=== PATIENT | female | born 1935 | race African-American/Black ===

== ENCOUNTER 2018-11-19 15:57 | Inpatient (IN) ==
[2018-11-19] MEDS ORDERED: Sod Chloride 0.9% Inj 1,000 ML IV.SIG ONE (16:48)
[2018-11-19] MEDS ORDERED: Acetaminophen 325 MG Tablet PO ONE (16:48)
[2018-11-19] MEDS ORDERED: MethylPREDNISolone Sod Succinate Inj 40 MG/ML Vial IV.PUSH ONE (16:51)
--- NOTE | 2018-11-19 16:59 | ED ---
HPI General Chief Complaint: Shortness of Breath/Dyspnea Stated Complaint: sob/dr sent Time Seen by Provider: 11/19/18 16:41 Source: patient Mode of arrival: ambulatory Limitations: no limitations History of Present Illness 83-year-old female with PMH of COPD, DM, HTN, oxygen dependent at home on 2 L presents to the ED for evaluation of one day history of cold and flu symptoms with worsening shortness of breath. Patient states that she saw her primary care provider yesterday and was feeling well. She states she woke up this morning feeling feverish, more short of breath with a cough productive of yellow -green phlegm. She denies chest pain, palpitations, diaphoresis, nausea, vomiting, dysuria, lower extremity edema. She is followed by Dr. Harsh Urbina , pulmonology. She states that she called his office and was told to come to the emergency room. She endorses receiving the pneumonia vaccine. She did receive this years flu vaccine. She denies sick contacts. She is followed by Dr. Mccloud, cardiology. Related Data Home Medications Medication Instructions Recorded Confirmed alprazolam [Xanax] 0.5 mg PO TID 11/19/18 11/19/18 aspirin 81 mg PO DAILY 11/19/18 11/19/18 carvedilol [Coreg] 3.125 mg PO TID 11/19/18 11/19/18 citalopram 20 mg PO DAILY 11/19/18 11/19/18 furosemide [Lasix] 40 mg PO DAILY 11/19/18 11/19/18 omeprazole 40 mg PO BID 11/19/18 11/19/18 primidone 25 mg PO Q12H 11/19/18 11/19/18 warfarin [Coumadin] 5 mg PO DAILY 11/19/18 11/19/18 Allergies Allergy/AdvReac Type Severity Reaction Status Date / Time No Known Allergies Allergy Verified 11/19/18 16:38 Review of Systems ROS: all other systems reviewed are negative [facility] Medical History Medical History COPD (chronic obstructive pulmonary disease) (Acute) Diabetes (Acute) Essential tremor (Acute) History of cholecystitis (Acute) History of hysterectomy (Acute) Hypertension (Acute) Personal history of DVT (deep vein thrombosis) (Acute) Surgical History Surgical History History of appendectomy (Acute) History of knee surgery (Acute) History of knee surgery (Acute) History of tonsillectomy (Acute) Social History Social History Substance History: No History of Abuse Second Hand Smoke Exposure: No Smoking Status: Never smoker How Often Do You Have a Drink Containing Alcohol: Never Immunization History Tetanus Immunization: Unsure Exam Narrative Exam Narrative: GENERAL: Pleasant, obese -Syrian female on 2 L by nasal cannula, no acute distress. SKIN: Focused skin assessment warm/dry. HEAD: Atraumatic. Normocephalic. EYES: Pupils equal and round. No scleral icterus. No injection or drainage. ENT: No nasal bleeding or discharge. Mucous membranes pink and moist. NECK: Trachea midline. No JVD. CARDIOVASCULAR: Regular rate and rhythm. No murmur appreciated. RESPIRATORY: No accessory muscle use. Coarse breath sounds in all lung melendez. Breath sounds equal bilaterally. Wet sounding cough. Crackles at bedside. GASTROINTESTINAL: Abdomen soft, non-tender, nondistended. Hepatic and splenic margins not palpable. MUSCULOSKELETAL: No obvious deformities. No clubbing. No cyanosis. No edema. NEUROLOGICAL: Awake and alert. No obvious cranial nerve deficits. Motor grossly within normal limits. Normal speech. PSYCHIATRIC: Appropriate mood and affect; insight and judgment normal. Course Initial Documented Vital Signs Temperature 102.2 F H 11/19/18 16:01 Pulse Rate 94 H 11/19/18 16:01 Respiratory Rate 32 H 11/19/18 16:01 Blood Pressure 166/77 H 11/19/18 16:01 Pulse Oximetry 83 L 11/19/18 16:01 Last Documented Vital Signs Temperature 98.9 F 11/19/18 16:38 Pulse Rate 92 H 11/19/18 17:21 Respiratory Rate 24 11/19/18 17:21 Blood Pressure 139/63 11/19/18 16:38 Pulse Oximetry 96 11/19/18 20:34 Medical Decision Making DEMARCO Attestation DEMARCO supervised visit: Yes Attestation: I, Dr. Javier, have reviewed the advance practice practitioner's documentation and am in agreement, met with the patient face to face, made the diagnosis, and the medical decision making was done by me. *My assessment and Findings: Patient is an 83-year-old female with history of COPD who presents with complaint of worsening cough and dyspnea. She normally wears 2 L nasal cannula at 3 L on exertion. On arrival here she is hypoxic on her normal oxygen and had to be increased to 4 L while at rest just to maintain a saturation of 90-92. EKG shows T wave inversions and troponin is slightly elevated, though the pilot can router does not want her on heparin at this time. CXR shows possible scarring/density and she has been given antibiotics. She has been admitted. [facility] Narrative Medical decision making narrative: 83-year-old female with PMH of DM, COPD, HTN , oxygen dependent on 2 L at home on Coumadin presents to the ED for evaluation of less than 12-hour history of cough, worsening shortness of breath. Patient denies associated chest pain. Patient is febrile, heart rate 94, O2 saturations in the 80s on 2 L on arrival. O2 sats improved to 95% on 4 L by nasal cannula. On physical exam she has coarse breath sounds in all lung melendez. Patient was administered a dose of Solu-Medrol and duo. Sepsis workup was initiated. Patient was administered Tylenol by mouth. EKG with right axis deviation and T wave abnormalities in leads II, III, and V2 through V4, change from last EKG in 2016. Troponin of 0.12. WBC is 15.8 with a left shift. Hemoglobin 10.0. Lactic acid 1.3. BUN 11, creatinine 1.15. CXR: Right upper lobe density, likely scarring. Patient was administered IV azithromycin and Rocephin. I spoke with Dr. Dexter, on-call for Dr. Mccloud. He does not recommend anticoagulation at this time. His service will consult on the patient. I discussed the findings with the patient and her family member at bedside. They are agreeable to admission. I spoke with Dr. Beyer who agrees to accept the patient to the medicine service. Please see medicine notes for disposition. Medical Screen Exam Complete: Yes Emergency Medical Condition: Yes Differential Diagnosis Differential Diagnosis: Pneumonia versus influenza versus COPD exacerbation versus ACS versus other Lab Data Result diagrams: 11/19/18 17:10 11/19/18 17:10 Lab Results 11/19/18 11/19/18 11/19/18 Range/Units 17:10 17:10 17:10 WBC 15.8 H (4.0-11.0) th/mm3 RBC 5.12 (4.00-5.30) mil/mm3 Hgb 10.0 L (11.6-15.3) gm/dL Hct 33.6 L (35.0-46.0) % MCV 65.6 L (80.0-100.0) fL MCH 19.6 L (27.0-34.0) pg MCHC 29.8 L (32.0-36.0) % RDW 20.9 H (11.6-17.2) % Plt Count 246 (150-450) th/mm3 MPV 8.6 (7.0-11.0) fL Neut % (Auto) 79.0 H (16.0-70.0) % Lymph % (Auto) 14.4 (9.0-44.0) % Stone % (Auto) 6.0 (0.0-8.0) % Eos % (Auto) 0.2 (0.0-4.0) % Baso % (Auto) 0.4 (0.0-2.0) % Neut # (Auto) 12.5 H (1.8-7.7) th/mm3 Lymph # (Auto) 2.3 (1.0-4.8) th/mm3 Stone # (Auto) 1.0 H (0.0-0.9) th/mm3 Eos # (Auto) 0.0 (0.0-0.4) th/mm3 Baso # (Auto) 0.1 (0.0-0.2) th/mm3 WBC Differential . Differential Comment Auto diff final Sodium 140 (136-145) meq/L Potassium 4.0 (3.5-5.1) meq/L Chloride 103 (98-107) meq/L Carbon Dioxide 29.7 (21.0-32.0) meq/L Anion Gap 7 (5-15) meq/L BUN 11 (7-18) mg/dL Creatinine 1.15 H (0.50-1.00) mg/dL Estimated GFR 55 L (>89) mL/min Random Glucose 134 H (74-106) mg/dL Lactic Acid 1.3 (0.4-2.0) mmol/L Calcium 8.1 L (8.5-10.1) mg/dL Total Bilirubin 0.5 (0.2-1.0) mg/dL AST 11 L (15-37) U/L ALT 12 (10-53) U/L Alkaline Phosphatase 62 (45-117) U/L Troponin I 0.12 H (0.02-0.05) ng/mL Total Protein 7.7 (6.4-8.2) g/dL Albumin 3.2 L (3.4-5.0) g/dL Imaging Data Radiologist's impression: Chest X-Ray 11/19/18 16:48 CONCLUSION: Right upper lobe density, likely scarring. ECG Data EKG Prior to Arrival: No Attestation: I personally reviewed and interpreted this ECG as follows: Interpretation: Rate 93, sinus rhythm. WA interval 172, QRS 89, QTc 408 ms. Normal axis. Inverted T waves with minimal ST depression in leads II, 3, V2, V3 , V4. This is changed as compared to previous EKG in 2016. Reviewed by Dr. Javier. Discharge Plan Discharge Disposition Patient Disposition: ED Admit(ED Internal Use Only) Discharge Order Discharge Orders: ED Use Only Admit Order (Routine); Ordered 11/19/18 Ordered By: Mary Moreno Physicians Team ED Provider: Fernanda Javier ED Midlevel Provider: Mary Moreno Primary Care Provider: Surya Anderson Attending Provider: Sarika Beyer Other Providers: Armand Peter ; Tara Mccloud Status ED Status: Admitted Patient
--- NOTE | 2018-11-19 17:24 | XR ---
EXAM DATE: 11/19/2018 5:14 PM EST AGE/SEX: 83 years / Female INDICATIONS: Cough and shortness of breath. CLINICAL DATA: This is the patient's initial encounter. Patient reports that signs and symptoms have been present for 1 day and indicates a pain score of 0/10. MEDICAL/SURGICAL HISTORY: . Chronic obstructive pulmonary disease. Emphysema. Right clavicle fr acture. . Cardiac catheter. COMPARISON: POI, XR CHEST PA AND LAT, 09/10/2016. POI, CT CHEST W/O CONTRAST, 05/26/2015. . FINDINGS: A single AP view of the chest demonstrates minimal right upper lobe density likely scarring. Left estefany g clear. Diminished lung volumes. Heart normal in size. The cardiomediastinal contours are unremarkab le. Osseous structures are intact. CONCLUSION: Right upper lobe density, likely scarring. Electronically signed by: Robert Chacon MD Board Certified Radiologist 11/19/2018 5:22 PM EST
[2018-11-19 17:39] LABS: Baso # (Auto) 0.1 th/mm3 (0.0-0.2); Baso % (Auto) 0.4 % (0.0-2.0); Eos % (Auto) 0.2 % (0.0-4.0); Hematocrit 33.6 % (35.0-46.0); Lymph # (Auto) 2.3 th/mm3 (1.0-4.8); Lymph % (Auto) 14.4 % (9.0-44.0); Mean Corpuscular Hemoglobin 19.6 pg (27.0-34.0); Mean Corpuscular Volume 65.6 fL (80.0-100.0); Mean Platelet Volume 8.6 fL (7.0-11.0); Neut # (Auto) 12.5 th/mm3 (1.8-7.7); Platelet Count 246 th/mm3 (150-450); Red Blood Count 5.12 mil/mm3 (4.00-5.30); Red Cell Distribution Width 20.9 % (11.6-17.2); White Blood Count 15.8 th/mm3 (4.0-11.0)
[2018-11-19 17:53] LABS: Mean Corpuscular HGB Conc 29.8 % (32.0-36.0)
[2018-11-19 18:00] LABS: Alanine Aminotransferase 12 U/L (10-53); Albumin 3.2 g/dL (3.4-5.0); Anion Gap 7 meq/L (5-15); Aspartate Aminotransferase 11 U/L (15-37); Blood Urea Nitrogen 11 mg/dL (7-18); Calcium 8.1 mg/dL (8.5-10.1); Carbon Dioxide 29.7 meq/L (21.0-32.0); Chloride 103 meq/L (98-107); Glomerular Filtration Rate 55 mL/min (>89); Glucose,Random 134 mg/dL (74-106); Sodium 140 meq/L (136-145)
[2018-11-19 18:04] LABS: Alkaline Phosphatase 62 U/L (45-117); Total Protein 7.7 g/dL (6.4-8.2); Troponin I 0.12 ng/mL (0.02-0.05)
[2018-11-19] MEDS ORDERED: Azithromycin Inj 500 MG in Sodium Chlor 0.9% Inj 250 ML IV.SIG ONE ×3 (18:07→23:59)
[2018-11-19] MEDS ORDERED: Sodium Chlor 0.9% Inj 500 ML IV.SIG ONE (18:37)
[2018-11-19] MEDS ORDERED: Acetaminophen 325 MG Tablet PO PRN (19:27)
[2018-11-19] MEDS ORDERED: Bisacodyl 10 MG Supp RECTAL PRN (19:27)
[2018-11-19] MEDS ORDERED: Dextrose 50% in Water 50 ML Vial IV.PUSH PRN (19:31)
--- NOTE | 2018-11-19 19:44 | P.HPIM ---
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 Patient reports her cough started last night and is productive of yellow/pink sputum. She was febrile on arrival to the emergency department however denies having any knowledge or symptoms of this. She denies any chest pain or shortness of breath despite being hypoxic to 83%. No abdominal pain. No nausea/vomiting/diarrhea. No focal neurologic deficits. Inpatient Certification Inpatient Certification: I certify that the inpatient services were ordered in accordance with Medicare regulations governing the order. This includes certification that hospital inpatient services are reasonable and necessary and in the case of services not specified as inpatient-only under 42 CFR 419.22(n), that they are appropriately provided as inpatient services in accordance to with the 2-midnight benchmark under 43 CFR 412.3(e) Estimated Total Length of Stay (Days): 3 Plans for Post Hospital Care: Not yet determined Review of Systems Review of Systems: all other systems reviewed are negative [facility] Medical History Medical History COPD (chronic obstructive pulmonary disease) (Acute) Diabetes (Acute) Essential tremor (Acute) History of cholecystitis (Acute) History of hysterectomy (Acute) Hypertension (Acute) Personal history of DVT (deep vein thrombosis) (Acute) Surgical History Surgical History History of appendectomy (Acute) History of knee surgery (Acute) History of knee surgery (Acute) History of tonsillectomy (Acute) Family History Family History Other Coronary artery disease Diabetes mellitus Social History Social History Substance History: No History of Abuse Second Hand Smoke Exposure: No Smoking Status: Never smoker How Often Do You Have a Drink Containing Alcohol: Never Immunization History Tetanus Immunization: Unsure Medications and Allergies Allergies Allergy/AdvReac Type Severity Reaction Status Date / Time No Known Allergies Allergy Verified 11/19/18 16:38 Home Medications Medication Instructions Recorded Confirmed Type alprazolam [Xanax] 0.5 mg PO TID 11/19/18 11/19/18 History aspirin 81 mg PO DAILY 11/19/18 11/19/18 History carvedilol [Coreg] 3.125 mg PO TID 11/19/18 11/19/18 History citalopram 20 mg PO DAILY 11/19/18 11/19/18 History furosemide [Lasix] 40 mg PO DAILY 11/19/18 11/19/18 History omeprazole 40 mg PO BID 11/19/18 11/19/18 History primidone 25 mg PO Q12H 11/19/18 11/19/18 History warfarin [Coumadin] 5 mg PO DAILY 11/19/18 11/19/18 History Active Medications: Active Medications Acetaminophen (Tylenol) 650 mg PO Q4H PRN PRN Reason: Temp > 100.4 Al Hydroxide/Mg Hydroxide (Milk Of Magnesia Liq) 30 ml PO Q12H PRN PRN Reason: Mild Constipation Albuterol (Duoneb Neb (Prn)) 1 ampul NEB Q4HR NEB PRN PRN Reason: SHORTNESS OF BREATH/WHEEZING Bisacodyl (Dulcolax Supp) 10 mg RECTAL DAILY PRN PRN Reason: SEVERE CONSITIPATION Dextrose (D50w Vial) 50 ml IV.PUSH UNSCH PRN PRN Reason: PER HYPOGLYCEMIA PROTOCOL Glucagon (Glucagon Inj) 1 mg OTHER PRN PRN PRN Reason: for Hypoglycemia Protocol Ceftriaxone Sodium 1,000 mg/ (Sodium Chloride) 100 mls @ 200 mls/hr IV.SIG Q24H KRISTIAN Azithromycin 500 mg/ Sodium (Chloride) 250 mls @ 250 mls/hr IV.SIG Q24H KRISTIAN Insulin Aspart (Novolog Insulin Correctional Sugar Inj) 0 unit SQ ACHS AND 3AM KRISTIAN; Protocol Lactulose (Lactulose Liq) 30 ml PO DAILY PRN PRN Reason: SEVERE CONSITIPATION Methylprednisolone Sodium Succinate (Solumedrol Inj) 40 mg IV.PUSH Q12H KRISTIAN Ondansetron HCl (Zofran Inj) 4 mg IV.PUSH Q6H PRN PRN Reason: NAUSEA OR VOMITING Senna/Docusate Sodium (Kori-Colace) 1 tab PO BID KRISTIAN Sennosides (Senokot) 17.2 mg PO Q12H PRN PRN Reason: Moderate Constipation Sodium Chloride (Ns Flush) 2 ml IV.FLUSH BID KRISTIAN Sodium Chloride (Ns Flush) 2 ml IV.FLUSH BID KRISTIAN Sodium Chloride (Ns Flush) 2 ml IV.FLUSH PRN PRN PRN Reason: FLUSH AFTER USING IV ACCESS Sodium Chloride (Ns Flush) 2 ml IV.FLUSH PRN PRN PRN Reason: FLUSH AFTER USING IV ACCESS Physical Exam Vital signs: Vital Signs 11/19/18 16:01 11/19/18 16:38 11/19/18 16:48 Temperature 102.2 F H 98.9 F Pulse Rate 94 H 94 H Respiratory Rate 32 H 24 Blood Pressure 166/77 H 139/63 Pulse Oximetry 83 L 94 L 96 11/19/18 16:53 11/19/18 17:12 11/19/18 17:21 Temperature Pulse Rate 92 H 92 H Respiratory Rate 24 Blood Pressure Pulse Oximetry 95 Intake & Output 11/19/18 11/19/18 11/20/18 06:59 18:59 06:59 Intake Total 1000 / 1000 100 / 100 Balance 1000 / 1000 100 / 100 Weight 108.862 kg Intake: IV 1000 / 1000 100 / 100 NS Inj 1,000 ML @ Wide Open IV. 1000 / 1000 SIG BOLUS ONE Rx#:[id number] Rocephin Inj 1,000 MG In NS Inj 100 / 100 100 ML @ 200 mls/hr IV.SIG ONCE ONE Rx#:[id number] Narrative: Gen.: No acute distress Head: Normocephalic. Atraumatic. EENT: Pupils equal round and reactive to light. Nose without drainage. Airway intact. Throat without injection. Cardiovascular: Regular rate and rhythm. No murmurs, rubs or gallops. Respiratory: Bilateral wheezes and rhonchi Abdomen: Soft, nontender, nondistended. No peritoneal signs. Musculoskeletal: No gross deformities. No edema. Skin: No obvious rashes or erythema. Neuro: Sensory and motor grossly intact. Cranial nerves II through XII grossly intact. Results Labs CBC & Chem 7: 11/19/18 17:10 11/19/18 17:10 Imaging Impressions Chest X-Ray 11/19/18 16:48 CONCLUSION: Right upper lobe density, likely scarring. Caprini VTE Risk Assessment Caprini VTE Risk Assessment: Moderate/High Risk (score >= 2) Caprini Risk Assessment Model: Point Value = 1 Point Value = 2 Point Value = 3 Point Value = 5 Age 41-60 Minor surgery BMI > 25 kg/m2 Swollen legs Varicose veins or History of unexplained or recurrent spontaneous Oral contraceptives or hormone replacement Sepsis (< 1 month) Serious lung disease, including pneumonia (< 1 month) Abnormal pulmonary function Acute myocardial infarction Congestive heart failure (< 1 month) History of inflammatory bowel disease Medical patient at bed rest Age 61-74 Arthroscopic surgery Major open surgery (> 45 min) Laparoscopic surgery (> 45 min) Malignancy Confined to bed (> 72 hours) Immobilizing plaster cast Central venous access Age >= 75 History of VTE Family history of VTE Factor V Leiden Prothrombin [id number] Lupus anticoagulant Anticardiolipin antibodies Elevated serum homocysteine Heparin-induced thrombocytopenia Other congenital or acquired thrombophilia Stroke (< 1 month) Elective arthroplasty Hip, pelvis, or leg fracture Acute spinal cord injury (< 1 month) Prophylaxis Regimen: Total Risk Factor Score Risk Level Prophylaxis Regimen 0-1 Low Early ambulation 2 Moderate Order ONE of the following: *Sequential Compression Device (SCD) *Heparin 5000 units SQ BID 3-4 Higher Order ONE of the following medications: *Heparin 5000 units SQ TID *Enoxaparin/Lovenox 40 mg SQ daily (WT < 150 kg, CrCl > 30 mL/min) *Enoxaparin/Lovenox 30 mg SQ daily (WT < 150 kg, CrCl > 10-29 mL/min) *Enoxaparin/Lovenox 30 mg SQ BID (WT < 150 kg, CrCl > 30 mL/min) AND/OR *Sequential Compression Device (SCD) 5 or more Highest Order ONE of the following medications: *Heparin 5000 units SQ TID (Preferred with Epidurals) *Enoxaparin/Lovenox 40 mg SQ daily (WT < 150 kg, CrCl > 30 mL/min) *Enoxaparin/Lovenox 30 mg SQ daily (WT < 150 kg, CrCl > 10-29 mL/min) *Enoxaparin/Lovenox 30 mg SQ BID (WT < 150 kg, CrCl > 30 mL/min) AND *Sequential Compression Device (SCD) Assessment and Plan Plan Assessment/plan: 1. COPD exacerbation/cough/Sirs Chest x-ray negative for acute process Increased cough productive of purulent sputum Blood cultures pending UA pending Azithromycin/Rocephin Duo nebs IV steroids Supplemental oxygen as needed 2. Elevated troponin/EKG changes Patient's troponin 0.12 EKG significant for T wave inversions in V2, V3, V4 and leads II and III new from previous Patient denies any chest pain ED provider spoke with Dr. Dexter who recommends serial EKGs/troponins without anticoagulation at this time ACS rule out pending 3. History of DVT/PE Patient anticoagulated on Coumadin INR pending Continue Coumadin, adjust dosing if needed 4. Hypertension Continue home medications 5. Diabetes mellitus Patient reports she is diet controlled Sliding-scale insulin Monitor blood glucose FEN Diabetic diet Electrolytes: Monitor and replete as needed Coumadin
[2018-11-19] MEDS ORDERED: Azithromycin Inj 500 MG in Sodium Chlor 0.9% Inj 250 ML IV.SIG SCH (23:00)
[2018-11-19] MEDS: Senna/Docusate Sodium 8.6/50 MG Tablet PO SCH (23:31)
[2018-11-19] MEDS: Insulin NovoLOG Aspart Correctional Sugar Inj SQ SCH (23:54)
[2018-11-20 00:19] LABS: Activated Partial Thrombo Time 47.8 sec (23.4-31.7); INR 3.2 Ratio; Prothrombin Time 32.7 sec (9.8-11.6)
[2018-11-20 00:32] LABS: Troponin I 0.13 ng/mL (0.02-0.05)
[2018-11-20] MEDS: Insulin NovoLOG Aspart Correctional Sugar Inj SQ SCH ×5 (03:55→21:14)
[2018-11-20 05:31] LABS: Baso % (Auto) 0.2 % (0.0-2.0); Hematocrit 32.4 % (35.0-46.0); Hemoglobin 9.7 gm/dL (11.6-15.3); Lymph # (Auto) 1.3 th/mm3 (1.0-4.8); Mean Corpuscular HGB Conc 29.8 % (32.0-36.0); Mean Corpuscular Volume 67.2 fL (80.0-100.0); Mean Platelet Volume 8.7 fL (7.0-11.0); Mono # (Auto) 0.5 th/mm3 (0.0-0.9); Mono % (Auto) 2.6 % (0.0-8.0); Neut # (Auto) 16.9 th/mm3 (1.8-7.7); Neut % (Auto) 90.2 % (16.0-70.0); Platelet Count 213 th/mm3 (150-450); Red Blood Count 4.82 mil/mm3 (4.00-5.30); Red Cell Distribution Width 21.2 % (11.6-17.2); White Blood Count 18.8 th/mm3 (4.0-11.0)
[2018-11-20 05:43] LABS: Calcium 7.5 mg/dL (8.5-10.1); Carbon Dioxide 24.9 meq/L (21.0-32.0); Potassium 3.8 meq/L (3.5-5.1)
[2018-11-20 05:46] LABS: Troponin I 0.1 ng/mL (0.02-0.05)
[2018-11-20] MEDS ORDERED: CITALOPRAM 20 MG PO SCH (09:00)
[2018-11-20] MEDS: Senna/Docusate Sodium 8.6/50 MG Tablet PO SCH ×2 (10:10→20:58)
[2018-11-20] MEDS: ALPRAZolam 0.5 MG Tablet PO SCH ×3 (10:11→18:45)
[2018-11-20] MEDS: Furosemide 40 MG Tablet PO SCH (10:11)
[2018-11-20] MEDS: Citalopram 20 MG Tablet PO SCH (10:12)
--- NOTE | 2018-11-20 12:06 | P.CONCA ---
History of Present Illness Service: Cardiology Consult date: 11/20/18 Requesting Physician: Mary Moreno Reason for Consult: Elevated troponin Primary Care Provider: Surya Anderson MD History of Present Illness: This is an 83-year-old female known to Dr. Mccloud with a past medical history of COPD, diabetes, pulmonary embolism on Coumadin, hypertension , GERD, sleep apnea, TIA, cervical spondylolysis and palpitations. She stated that on 11/18/17 she start to develop a cough with yellow/pink sputum. She decided to seek further evaluation and treatment in the Emergency Department. On arrival to the Emergency Department, she was found to be febrile and hypoxic. She denied any CP or SOB at this time. Currently, she is resting comfortably in bed without complaints of CP, pressure, palpitations, dizziness, edema or SOB. Her last echo on 07/2017 EF 59%, trace-mild MR, mild TR, trace PI , LAE. Review of Systems All other systems reviewed negative except as stated in HPI [facility] [place] - History History Provided By: Patient - Medical History Medical History: Medical History (Last Reviewed 11/19/18 @ 19:39 by Sarika Beyer MD) COPD (chronic obstructive pulmonary disease) Diabetes Essential tremor History of cholecystitis History of hysterectomy Hypertension Personal history of DVT (deep vein thrombosis) - Surgical History Surgical History: Surgical History (Last Updated 11/19/18 @ 19:39 by Sarika Beyer MD) History of appendectomy History of knee surgery History of knee surgery History of tonsillectomy - Family History Family History: Family History (Last Reviewed 11/19/18 @ 16:59 by AKIN Vitale) Other Coronary artery disease Diabetes mellitus - Tobacco History Second Hand Smoke Exposure: No Smoking Status: Former smoker - Alcohol History How Often Do You Have a Drink Containing Alcohol: Never - Substance Use History Substance History: No History of Abuse - Immunization History Tetanus Immunization: Unsure Hx Influenza Vaccine This Season: Yes Medications and Allergies Allergies Allergy/AdvReac Type Severity Reaction Status Date / Time No Known Allergies Allergy Verified 11/19/18 16:38 Home Medications Medication Instructions Recorded Confirmed Type alprazolam [Xanax] 0.5 mg PO TID 11/19/18 11/19/18 History aspirin 81 mg PO DAILY 11/19/18 11/19/18 History carvedilol [Coreg] 3.125 mg PO TID 11/19/18 11/19/18 History citalopram 20 mg PO DAILY 11/19/18 11/19/18 History furosemide [Lasix] 40 mg PO DAILY 11/19/18 11/19/18 History omeprazole 40 mg PO BID 11/19/18 11/19/18 History primidone 25 mg PO Q12H 11/19/18 11/19/18 History warfarin [Coumadin] 5 mg PO DAILY 11/19/18 11/19/18 History Active Medications: Active Medications Acetaminophen (Tylenol) 650 mg PO Q4H PRN PRN Reason: Temp > 100.4 Al Hydroxide/Mg Hydroxide (Milk Of Fer Liq) 30 ml PO Q12H PRN PRN Reason: Mild Constipation Albuterol (Duoneb Neb (Prn)) 1 ampul NEB Q4HR NEB PRN PRN Reason: SHORTNESS OF BREATH/WHEEZING Alprazolam (Xanax) 0.5 mg PO TID [facility] Last Admin: 11/20/18 10:11 Dose: 0.5 mg Aspirin (Aspirin Chew) 81 mg PO DAILY [facility] Last Admin: 11/20/18 10:10 Dose: 81 mg Bisacodyl (Dulcolax Supp) 10 mg RECTAL DAILY PRN PRN Reason: SEVERE CONSITIPATION Carvedilol (Coreg) 3.125 mg PO TID [facility] Last Admin: 11/20/18 10:11 Dose: 3.125 mg Citalopram Hydrobromide (Celexa) 20 mg PO DAILY [facility] Last Admin: 11/20/18 10:12 Dose: 20 mg Dextrose (D50w Vial) 50 ml IV.PUSH UNSCH PRN PRN Reason: PER HYPOGLYCEMIA PROTOCOL Furosemide (Lasix) 40 mg PO DAILY [facility] Last Admin: 11/20/18 10:11 Dose: 40 mg Glucagon (Glucagon Inj) 1 mg OTHER PRN PRN PRN Reason: for Hypoglycemia Protocol Ceftriaxone Sodium 1,000 mg/ (Sodium Chloride) 100 mls @ 200 mls/hr IV.SIG Q24H KRISTIAN Azithromycin 500 mg/ Sodium (Chloride) 250 mls @ 250 mls/hr IV.SIG Q24H KRISTIAN Insulin Aspart (Novolog Insulin Correctional Sugar Inj) 0 unit SQ ACHS AND 3AM KRISTIAN; Protocol Last Admin: 11/20/18 09:55 Dose: Not Given Lactulose (Lactulose Liq) 30 ml PO DAILY PRN PRN Reason: SEVERE CONSITIPATION Methylprednisolone Sodium Succinate (Solumedrol Inj) 40 mg IV.PUSH Q12H [facility] Ondansetron HCl (Zofran Inj) 4 mg IV.PUSH Q6H PRN PRN Reason: NAUSEA OR VOMITING Pantoprazole Sodium (Protonix) 40 mg PO BID [facility] Last Admin: 11/20/18 10:10 Dose: 40 mg Senna/Docusate Sodium (Kori-Colace) 1 tab PO BID [facility] Last Admin: 11/20/18 10:10 Dose: 1 tab Sennosides (Senokot) 17.2 mg PO Q12H PRN PRN Reason: Moderate Constipation Sodium Chloride (Ns Flush) 2 ml IV.FLUSH BID [facility] Last Admin: 11/20/18 11:33 Dose: 2 ml Sodium Chloride (Ns Flush) 2 ml IV.FLUSH BID [facility] Last Admin: 11/20/18 11:33 Dose: 2 ml Sodium Chloride (Ns Flush) 2 ml IV.FLUSH PRN PRN PRN Reason: FLUSH AFTER USING IV ACCESS Sodium Chloride (Ns Flush) 2 ml IV.FLUSH PRN PRN PRN Reason: FLUSH AFTER USING IV ACCESS Warfarin Sodium (Coumadin) 5 mg PO DAILY [facility] Last Admin: 11/20/18 10:10 Dose: 5 mg Exam Vital signs: Vital Signs 11/19/18 16:01 11/19/18 16:38 11/19/18 16:48 Temperature 102.2 F H 98.9 F Pulse Rate 94 H 94 H Respiratory Rate 32 H 24 Blood Pressure 166/77 H 139/63 Pulse Oximetry 83 L 94 L 96 11/19/18 16:53 11/19/18 17:12 11/19/18 17:21 Temperature Pulse Rate 92 H 92 H Respiratory Rate 24 Blood Pressure Pulse Oximetry 95 11/19/18 19:00 11/19/18 20:34 11/19/18 22:40 Temperature 98.4 F Pulse Rate 84 Respiratory Rate 19 Blood Pressure 154/78 H Pulse Oximetry 95 96 96 11/20/18 00:00 11/20/18 04:00 11/20/18 08:00 Temperature 97.8 F 97.8 F 98.1 F Pulse Rate 86 71 63 Respiratory Rate 16 16 25 H Blood Pressure 148/67 H 143/71 H 138/69 Pulse Oximetry 94 L 94 L 96 11/20/18 11:33 Temperature Pulse Rate Respiratory Rate 12 Blood Pressure Pulse Oximetry Intake & Output 11/19/18 11/20/18 11/20/18 18:59 06:59 18:59 Intake Total 1000 / 1000 350 / 350 Balance 1000 / 1000 350 / 350 Weight 108.862 kg 105.6 kg Intake: IV 1000 / 1000 350 / 350 Azithromycin Inj 500 MG In NS 250 / 250 Inj 250 ML @ 250 mls/hr IV.SIG ONCE ONE Rx#:[id number] NS Inj 1,000 ML @ Wide Open IV. 1000 / 1000 SIG BOLUS ONE Rx#:[id number] Rocephin Inj 1,000 MG In NS Inj 100 / 100 100 ML @ 200 mls/hr IV.SIG ONCE ONE Rx#:[id number] Other: # Voids 3 Date of Last Bowel Movement 11/19/18 Weight On Admission 105.6 kg - Constitutional no acute distress - Routine HEENT Exam Head: Present: normocephalic Eye: Present: PERRL ENT: Present: mucous membranes moist - Routine Neck Exam Present: full ROM - Routine Respiratory Exam Present: decreased breath sounds, crackles - Routine Cardiovascular Exam Present: S1, S2. Absent: murmur, gallop, rubs - Routine Abdominal Exam Present: normoactive bowel sounds - Routine Extremities Exam Present: full ROM, pulses intact, normal capillary refill. Absent: cyanosis, clubbing, edema - Routine Skin Exam Present: intact - Routine Neurological Exam Present: oriented X3 Results 11/20/18 03:50 11/20/18 03:50 Cardiac Enzymes 11/19/18 11/19/18 11/20/18 Range/Units 17:10 23:45 03:50 AST 11 L (15-37) U/L Troponin I 0.12 H 0.13 H 0.10 H (0.02-0.05) ng/mL Coagulation 11/19/18 Range/Units 23:45 PT 32.7 H (9.8-11.6) sec APTT 47.8 H (23.4-31.7) sec CBC 11/19/18 11/20/18 Range/Units 17:10 03:50 WBC 15.8 H 18.8 H (4.0-11.0) th/mm3 RBC 5.12 4.82 (4.00-5.30) mil/mm3 Hgb 10.0 L 9.7 L (11.6-15.3) gm/dL Hct 33.6 L 32.4 L (35.0-46.0) % Plt Count 246 213 (150-450) th/mm3 Neut # (Auto) 12.5 H 16.9 H (1.8-7.7) th/mm3 Lymph # (Auto) 2.3 1.3 (1.0-4.8) th/mm3 [place] # (Auto) 1.0 H 0.5 (0.0-0.9) th/mm3 Eos # (Auto) 0.0 0.0 (0.0-0.4) th/mm3 Baso # (Auto) 0.1 0.0 (0.0-0.2) th/mm3 Comprehensive Metabolic Panel 11/19/18 11/20/18 Range/Units 17:10 03:50 Sodium 140 140 (136-145) meq/L Potassium 4.0 3.8 (3.5-5.1) meq/L Chloride 103 105 (98-107) meq/L Carbon Dioxide 29.7 24.9 (21.0-32.0) meq/L BUN 11 10 (7-18) mg/dL Creatinine 1.15 H 0.95 (0.50-1.00) mg/dL Calcium 8.1 L 7.5 L (8.5-10.1) mg/dL AST 11 L (15-37) U/L ALT 12 (10-53) U/L Alkaline Phosphatase 62 (45-117) U/L Total Protein 7.7 (6.4-8.2) g/dL Albumin 3.2 L (3.4-5.0) g/dL Intake and Output 11/19/18 11/20/18 11/20/18 22:59 06:59 14:59 Intake Total 1100 / 1100 250 / 250 Balance 1100 / 1100 250 / 250 Intake: IV 1100 / 1100 250 / 250 Azithromycin Inj 500 MG In NS 250 / 250 Inj 250 ML @ 250 mls/hr IV.SIG ONCE ONE Rx#:[id number] NS Inj 1,000 ML @ Wide Open IV. 1000 / 1000 SIG BOLUS ONE Rx#:[id number] Rocephin Inj 1,000 MG In NS Inj 100 / 100 100 ML @ 200 mls/hr IV.SIG ONCE ONE Rx#:[id number] Other: # Voids 3 Date of Last Bowel Movement 11/19/18 Weight 108.862 kg 105.6 kg Weight On Admission 105.6 kg - Imaging and Cardiology Imaging: Impressions Chest X-Ray 11/19/18 16:48 CONCLUSION: Right upper lobe density, likely scarring. Assessment and Plan - Assessment (1) COPD exacerbation Code(s): J44.1 - Chronic obstructive pulmonary disease with (acute) exacerbation Status: Acute (2) Elevated troponin Code(s): R74.8 - Abnormal levels of other serum enzymes Status: Acute (3) History of DVT (deep vein thrombosis) Code(s): Z86.718 - Personal history of other venous thrombosis and embolism Status: Acute (4) Hypertension Code(s): I10 - Essential (primary) hypertension Status: Acute (5) Diabetes Code(s): E11.9 - Type 2 diabetes mellitus without complications Status: Acute - Plan Continue current treatment for COPD exacerbation. Troponin levels are slightly elevated but not trending, no signs of ACS at this time. Continue to monitor the patient on telemetry. We will obtain a 2D echo to evaluate LV function. We will continue to monitor the patient during her hospitalization. She will follow up with her primary english composition instructor, Dr. Mccloud, after discharge from the hospital. The patient was seen and evaluated by Dr. Dexter who participated in care, management and decision making. - Attending Attestation Patient seen and examined. I reviewed and agree with the evaluation and plan as presented. No evidence of ACS. Continue tx for COPD exacerbation. Continue monitoring. Increase activity. F/u w Dr. Mccloud as outpatient.
--- NOTE | 2018-11-20 12:11 | ECG ---
Date Performed: 11/19/2018 Time Performed: 17:06:53 PTAGE: 83 years EKG: Sinus rhythm MARKED RIGHT AXIS DEVIATION ST DEVIATION AND MODERATE T-WAVE ABNORMALITY, CONSIDER INFERIOR ISCHEMIA ABNORMAL ECG Compared to PREVIOUS TRACING , the right axis deviation is new and all of the T-wave abnormalities ar e new. Clinical correlation is needed. PREVIOUS TRACING DOCTOR: Anatoly Conn Interpretating Date/Time 11/20/2018 12:10:09
--- NOTE | 2018-11-20 14:19 | MB ---
cc: Deng Urbina MD DATE: 11/20/2018 HISTORY OF PRESENT ILLNESS: Ms. Thompson is an 83-year-old black female, whom I have known for over a decade with [id number] COPD. Her last visit was in April, at which time she was stable on Spiriva. She used oxygen as well continuously at 2-3 liters. She has obstructive sleep apnea and sleeps with a CPAP machine, followed by Dr. Swanson. She missed a October appointment, but we got a call yesterday that there was a therapist at her home and she was very congested and having difficulty breathing. We referred her to the emergency room and she was admitted overnight. She says she is feeling a little better today. Symptoms started 2 or 3 days ago when she developed congestion, cough, sputum, which was not particularly purulent, but this then resulted in shortness of breath. She has had no chest pain. She was not aware of fever, but presented with a temperature. Her O2 saturation was about 83% on room air as well. Chest x-ray does not reveal any obvious infiltrate. She has something in the right upper lobe which looks more like a scar. This is the first exacerbation that I am familiar within the last year. No other interval hospitalizations or surgeries since I saw her in April and followup with Dr. Mccloud in that interval was apparently stable. She also has a prior history of pulmonary embolism, both in 1980 and 1989, but has been on continuous warfarin and her INR was 3.2 on presentation. PAST MEDICAL HISTORY: Other than that noted above she has had chronic reflux disease and Parkinson's. MEDICATIONS: Her regular medications include: 1. Spiriva. 2. Oxygen. 3. Coumadin. 4. Coreg. 5. Xanax. 6. Omeprazole. 7. Aspirin. 8. Primidone. Medicines in the hospital are reviewed in the EMR. ALLERGIES: NONE KNOWN. FAMILY HISTORY: Father of a stroke. Mother had an abdominal aneurysm, in her 70s. No brothers, a sister who also has had COPD and another sister with heart disease. She has an adopted son. SOCIAL HISTORY: Currently lives alone, manages her own affairs. Former smoker, but quit smoking 30 years ago after about 30-pack years. REVIEW OF SYSTEMS: Other than that noted above, no loss of appetite, no nausea or vomiting, no increased swelling in her legs. PHYSICAL EXAMINATION: GENERAL: Obese black female, in no acute distress. VITAL SIGNS: Temperature was 102 on presentation, currently 98, pulse 90, respirations 18-22, O2 saturation on presentation 83, currently 96 on 3 liters. HEENT: Sclerae are anicteric. Mucous membranes are moist. NECK: Veins are not distended. LYMPHATIC: No adenopathy in the neck. LUNGS: Diffuse wheezing, minimal congestion. Regular rate and rhythm. No harsh murmur. ABDOMEN: Obese, but soft, nontender. EXTREMITIES: No significant edema or calf tenderness. No cyanosis. LABORATORY DATA: White count is 18,000, hemoglobin 9.7, hematocrit 32. INR 3.2, nasal wash for influenza negative. Blood cultures initially negative. Sputum culture pending. Ms. Thompson has moderate chronic obstructive pulmonary disease and this appeared to be an acute exacerbation. She has been started on IV corticosteroids, antibiotics and aerosolized bronchodilators. We will continue that as well as her oxygen. Further diagnostic and/or therapeutic intervention will depend on her ongoing clinical course. RRosanna Urbina MD RSW/ct , 01:33 PM , 01:41 PM
--- NOTE | 2018-11-20 15:55 | ECHRPT ---
Indication: SOB CONCLUSIONS Normal left ventricular size. Mild concentric left ventricular hypertrophy. The left ventricular systolic function is mildly reduced with an estimated ejection fraction in the range of 45- 50%. The right ventricle is moderately dilated. The right ventricle is severely dilated. The right atrial size is fukvdfpl-zh-binxyeqt dilated. Vpplu-qn-rhrr mitral valve regurgitation. Aortic valve sclerosis is present. There is mild to moderate tricuspid valve regurgitation. The estimated pulmonary arterial pressure is 79.6 mmHg. There is estimated severe pulmonary hypertension present ( > 70 mmHg). BP: / HR: Rhythm: Sinus MEASUREMENTS (Male / Female) Normal Values Technical Quality:Technically difficult study 2D ECHO LV Diastolic Diameter PLAX 4.1 cm 4.2 - 5.9 / 3.9 - 5.3 cm LV Systolic Diameter PLAX 3.3 cm IVS Diastolic Thickness 1.1 cm 0.6 - 1.0 / 0.6 - 0.9 cm LVPW Diastolic Thickness 1.1 cm 0.6 - 1.0 / 0.6 - 0.9 cm LV Relative Wall Thickness 0.6 LVOT Diameter 1.3 cm Aortic Root Diameter 2.9 cm LA Systolic Diameter LX 3.0 cm 3.0 - 4.0 / 2.7 - 3.8 cm M-MODE AV Cusp Separation MM 1.5 cm DOPPLER AV Peak Velocity 154.0 cm/s AV Peak Gradient 9.5 mmHg AV Mean Gradient 6.0 mmHg AV Velocity Time Integral 31.0 cm LVOT Peak Velocity 87.2 cm/s LVOT Peak Gradient 3.0 mmHg LVOT Velocity Time Integral 17.1 cm AV Area Cont Eq vti 0.7 cm AV Area Cont Eq pk 0.8 cm Mitral E Point Velocity 102.0 cm/s Mitral A Point Velocity 83.9 cm/s Mitral E to A Ratio 1.2 TR Peak Velocity 402.0 cm/s TR Peak Gradient 64.6 mmHg Right Atrial Pressure 15.0 mmHg Pulmonary Artery Systolic Pressu 79.6 mmHg Right Ventricular Systolic Press 79.6 mmHg FINDINGS LEFT VENTRICLE Normal left ventricular size. Mild concentric left ventricular hypertrophy. The left ventricular systolic function is mildly reduced with an estimated ejection fraction in the range of 45- 50%. RIGHT VENTRICLE The right ventricle is moderately dilated. The right ventricle is severely dilated. LEFT ATRIUM The left atrial size is normal. RIGHT ATRIUM The right atrial size is lntfyrdb-fq-tdyirlui dilated. ATRIAL SEPTUM No atrial level shunt is demonstrated by color flow Doppler interrogation. AORTA The aortic root and proximal ascending aorta are not well visualized. MITRAL VALVE Rvcqh-st-drwn mitral valve regurgitation. AORTIC VALVE Aortic valve sclerosis is present. TRICUSPID VALVE There is mild to moderate tricuspid valve regurgitation. The estimated pulmonary arterial pressure is 79.6 mmHg. There is estimated severe pulmonary hypertension present ( > 70 mmHg). PULMONARY VALVE The pulmonary valve is not well visualized. VESSELS The inferior vena cava is normal in size. PERICARDIUM No pericardial effusion. Harsh Hodgson MD, FACC (Electronically Signed) Final Date:20 November 2018 15:54
--- NOTE | 2018-11-20 17:19 | P.PNIM ---
Subjective Interval history: 83yo aaf admitted with worsening sob and hypoxia, sirs, troponin elevation and ekg changes pt seen and examined states she is breathing a little better, some cough and congestion , no cp, no nv Physical Exam Vital signs: Vital Signs 11/19/18 17:12 11/19/18 17:21 11/19/18 19:00 Temperature 98.4 F Pulse Rate 92 H 92 H 84 Respiratory Rate 24 19 Blood Pressure 154/78 H Pulse Oximetry 95 11/19/18 20:34 11/19/18 22:40 11/20/18 00:00 Temperature 97.8 F Pulse Rate 86 Respiratory Rate 16 Blood Pressure 148/67 H Pulse Oximetry 96 96 94 L 11/20/18 04:00 11/20/18 08:00 11/20/18 10:00 Temperature 97.8 F 98.1 F Pulse Rate 71 63 Respiratory Rate 16 25 H Blood Pressure 143/71 H 138/69 Pulse Oximetry 94 L 96 95 11/20/18 11:33 11/20/18 13:02 Temperature 98.1 F Pulse Rate 69 Respiratory Rate 12 20 Blood Pressure 129/60 Pulse Oximetry 95 Intake & Output 11/19/18 11/20/18 11/20/18 18:59 06:59 18:59 Intake Total 1000 / 1000 350 / 350 Balance 1000 / 1000 350 / 350 Weight 108.862 kg 105.6 kg Intake: IV 1000 / 1000 350 / 350 Azithromycin Inj 500 MG In NS 250 / 250 Inj 250 ML @ 250 mls/hr IV.SIG ONCE ONE Rx#:[id number] NS Inj 1,000 ML @ Wide Open IV. 1000 / 1000 SIG BOLUS ONE Rx#:[id number] Rocephin Inj 1,000 MG In NS Inj 100 / 100 100 ML @ 200 mls/hr IV.SIG ONCE ONE Rx#:[id number] Other: # Voids 3 Date of Last Bowel Movement 11/19/18 Weight On Admission 105.6 kg Narrative: wdwn 83yo aaf aaox2 mild forgetful no distress heart s1s2 reg lungs tight air movment w diffuse ins exp wheeze abd soft nondt pos bs nondt no mass ext no edema, no calf tenderness Results Labs CBC & Chem 7: 11/20/18 03:50 11/20/18 03:50 Labs: Microbiology 11/19/18 17:10 Blood - Peripheral Aerobic Blood Culture - Preliminary No growth in 1 day 11/19/18 17:10 Blood - Peripheral Anaerobic Blood Culture - Preliminary No growth in 1 day 11/19/18 17:10 Blood - Peripheral Aerobic Blood Culture - Preliminary No growth in 1 day 11/19/18 17:10 Blood - Peripheral Anaerobic Blood Culture - Preliminary No growth in 1 day 11/19/18 17:10 Nasal Wash Influenza Types A,B Antigen - Final Negative for FLU A and B antigen Infection due to influenza A or B cannot be ruled out since the antigen present in the sample may be below the detection limit of the test. Imaging Imaging: Impressions Chest X-Ray 11/19/18 16:48 CONCLUSION: Right upper lobe density, likely scarring. Assessment and Plan (1) COPD exacerbation: Code(s): J44.1 - Chronic obstructive pulmonary disease with (acute) exacerbation Status: Acute (2) Elevated troponin: Code(s): R74.8 - Abnormal levels of other serum enzymes Status: Acute (3) History of DVT (deep vein thrombosis): Code(s): Z86.718 - Personal history of other venous thrombosis and embolism Status: Acute (4) Hypertension: Code(s): I10 - Essential (primary) hypertension Status: Acute (5) Diabetes: Code(s): E11.9 - Type 2 diabetes mellitus without complications Status: Acute Plan ACTUE EXACERBATION COPD cotninue steroids nebs and oxygen ACUTE HYPOXIC on CHRONIC HYPOXIC RESP FAILURE - supplemental oxygen CLINICAL PNA w fever and sirs on admission - cont iv abx fu sputum and blood cxs TROPONIN ELEVATION w nonspec EKG changes wo ACS - cardio following , cont asa coreg, coumadin, nitrates prn echo w lvh, ef 45%, severe PHTN PAP>70% w dilated r atrium and rv and TR, MR DM - cont iss, diet meds HTN- stable cont home meds Hx DVT on coumadin ESSENTIAL TREMORS on primidone GERD on omeprazole DEPRESSION /ANXIETY - xanax and citalopram dvt prophylaxis inr 3 on coumadin dispo - to home w c when stable. 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
[2018-11-20] MEDS ORDERED: Warfarin Consult Pharmacy OTHER PRN (17:20)
[2018-11-20] MEDS ORDERED: Azithromycin Inj 500 MG in Sodium Chlor 0.9% Inj 250 ML IV.SIG SCH ×2 (18:00→23:59)
[2018-11-20 19:43] LABS: INR 4.6 Ratio
[2018-11-20] MEDS: MethylPREDNISolone Sod Succinate Inj 40 MG/ML Vial IV.PUSH SCH (20:58)
[2018-11-21] MEDS: Insulin NovoLOG Aspart Correctional Sugar Inj SQ SCH ×5 (03:50→20:20)
[2018-11-21 06:09] LABS: INR 4.8 Ratio; Prothrombin Time 48.4 sec (9.8-11.6)
[2018-11-21] MEDS: Furosemide 40 MG Tablet PO SCH (09:50)
[2018-11-21] MEDS: ALPRAZolam 0.5 MG Tablet PO SCH ×3 (09:50→18:03)
[2018-11-21] MEDS: Citalopram 20 MG Tablet PO SCH (09:51)
[2018-11-21] MEDS: MethylPREDNISolone Sod Succinate Inj 40 MG/ML Vial IV.PUSH SCH ×2 (09:51→20:20)
[2018-11-21] MEDS: Senna/Docusate Sodium 8.6/50 MG Tablet PO SCH ×2 (09:51→20:21)
--- NOTE | 2018-11-21 14:53 | P.PNCA ---
Subjective Interval history: Patient denies any CP, pressure, palpitations, dizziness or edema. She does complain of cough and mild SOB. Medications and Allergies Allergies Allergy/AdvReac Type Severity Reaction Status Date / Time No Known Allergies Allergy Verified 11/19/18 16:38 Home Medications Medication Instructions Recorded Confirmed Type alprazolam [Xanax] 0.5 mg PO TID 11/19/18 11/19/18 History aspirin 81 mg PO DAILY 11/19/18 11/19/18 History carvedilol [Coreg] 3.125 mg PO TID 11/19/18 11/19/18 History citalopram 20 mg PO DAILY 11/19/18 11/19/18 History furosemide [Lasix] 40 mg PO DAILY 11/19/18 11/19/18 History omeprazole 40 mg PO BID 11/19/18 11/19/18 History primidone 25 mg PO Q12H 11/19/18 11/19/18 History warfarin [Coumadin] 5 mg PO DAILY 11/19/18 11/19/18 History Active Medications: Active Medications Acetaminophen (Tylenol) 650 mg PO Q4H PRN PRN Reason: Temp > 100.4 Al Hydroxide/Mg Hydroxide (Milk Of Fer Liq) 30 ml PO Q12H PRN PRN Reason: Mild Constipation Albuterol (Duoneb Neb (Prn)) 1 ampul NEB Q4HR NEB PRN PRN Reason: SHORTNESS OF BREATH/WHEEZING Albuterol (Duoneb Neb (Kavita)) 1 ampul NEB TID NEB [facility] Last Admin: 11/21/18 12:22 Dose: 1 ampul Alprazolam (Xanax) 0.5 mg PO TID [facility] Last Admin: 11/21/18 13:56 Dose: 0.5 mg Aspirin (Aspirin Chew) 81 mg PO DAILY [facility] Last Admin: 11/21/18 09:50 Dose: 81 mg Bisacodyl (Dulcolax Supp) 10 mg RECTAL DAILY PRN PRN Reason: SEVERE CONSITIPATION Carvedilol (Coreg) 3.125 mg PO TID [facility] Last Admin: 11/21/18 14:34 Dose: 3.125 mg Citalopram Hydrobromide (Celexa) 20 mg PO DAILY [facility] Last Admin: 11/21/18 09:51 Dose: 20 mg Dextrose (D50w Vial) 50 ml IV.PUSH UNSCH PRN PRN Reason: PER HYPOGLYCEMIA PROTOCOL Furosemide (Lasix) 40 mg PO DAILY [facility] Last Admin: 11/21/18 09:50 Dose: 40 mg Glucagon (Glucagon Inj) 1 mg OTHER PRN PRN PRN Reason: for Hypoglycemia Protocol Ceftriaxone Sodium 1,000 mg/ (Sodium Chloride) 100 mls @ 200 mls/hr IV.SIG Q24H [facility] Last Infusion: 11/20/18 20:01 Dose: Infused Azithromycin 500 mg/ Sodium (Chloride) 250 mls @ 250 mls/hr IV.SIG Q24H [facility] Last Infusion: 11/21/18 01:39 Dose: Infused Insulin Aspart (Novolog Insulin Correctional Sugar Inj) 0 unit SQ ACHS AND 3AM [facility]; Protocol Last Admin: 11/21/18 13:55 Dose: 1 unit Lactulose (Lactulose Liq) 30 ml PO DAILY PRN PRN Reason: SEVERE CONSITIPATION Methylprednisolone Sodium Succinate (Solumedrol Inj) 40 mg IV.PUSH Q12H [facility] Last Admin: 11/21/18 09:51 Dose: 40 mg Ondansetron HCl (Zofran Inj) 4 mg IV.PUSH Q6H PRN PRN Reason: NAUSEA OR VOMITING Pantoprazole Sodium (Protonix) 40 mg PO BID [facility] Last Admin: 11/21/18 09:51 Dose: 40 mg Pharmacy Profile Note (Coumadin Consult Pharmacy) 1 each OTHER UNSCH PRN PRN Reason: PHARMACY DOCUMENTATION Senna/Docusate Sodium (Kori-Colace) 1 tab PO BID [facility] Last Admin: 11/21/18 09:51 Dose: 1 tab Sennosides (Senokot) 17.2 mg PO Q12H PRN PRN Reason: Moderate Constipation Last Admin: 11/21/18 13:56 Dose: 17.2 mg Sodium Chloride (Ns Flush) 2 ml IV.FLUSH BID [facility] Last Admin: 11/21/18 09:52 Dose: 2 ml Sodium Chloride (Ns Flush) 2 ml IV.FLUSH BID [facility] Last Admin: 11/21/18 09:52 Dose: Not Given Sodium Chloride (Ns Flush) 2 ml IV.FLUSH PRN PRN PRN Reason: FLUSH AFTER USING IV ACCESS Sodium Chloride (Ns Flush) 2 ml IV.FLUSH PRN PRN PRN Reason: FLUSH AFTER USING IV ACCESS Warfarin Sodium (Coumadin) 5 mg PO DAILY [facility] Last Admin: 11/20/18 10:10 Dose: 5 mg Physical Exam Vital signs: Vital Signs 11/20/18 17:10 11/20/18 19:26 11/20/18 20:00 Temperature 98.3 F Pulse Rate 66 67 66 Respiratory Rate 18 16 Blood Pressure 135/63 Pulse Oximetry 98 97 11/20/18 20:50 11/21/18 00:00 11/21/18 01:24 Temperature 98.4 F 98.4 F Pulse Rate 66 62 70 Respiratory Rate 18 18 Blood Pressure 119/58 L 111/59 L Pulse Oximetry 93 L 93 L 11/21/18 04:00 11/21/18 05:48 11/21/18 07:31 Temperature 98.4 F Pulse Rate 60 69 65 Respiratory Rate 18 17 Blood Pressure 169/71 H Pulse Oximetry 92 L 97 11/21/18 08:00 11/21/18 12:00 11/21/18 12:02 Temperature 97.6 F 97.8 F Pulse Rate 63 64 62 Respiratory Rate 25 H 22 Blood Pressure 178/81 H 125/57 L Pulse Oximetry 99 91 L 11/21/18 12:24 Temperature Pulse Rate 64 Respiratory Rate 17 Blood Pressure Pulse Oximetry Intake & Output 11/20/18 11/21/18 11/21/18 18:59 06:59 18:59 Intake Total 350 / 350 Balance 350 / 350 Weight 107 kg Intake: IV 350 / 350 Azithromycin Inj 500 MG In NS 250 / 250 Inj 250 ML @ 250 mls/hr IV.SIG Q24H [facility] Rx#:[id number] Rocephin Inj 1,000 MG In NS Inj 100 / 100 100 ML @ 200 mls/hr IV.SIG Q24H [facility] Rx#:[id number] Other: # Incontinent Voids 2 # Urine Diapers 4 2 Date of Last Bowel Movement 11/19/18 11/19/18 - Constitutional no acute distress - Routine HEENT Exam Head: Present: normocephalic Eye: Present: PERRL ENT: Present: mucous membranes moist - Routine Neck Exam Present: full ROM - Routine Respiratory Exam Present: rhonchi, wheezes - Routine Cardiovascular Exam Present: S1, S2. Absent: murmur, gallop, rubs - Routine Abdominal Exam Present: normoactive bowel sounds - Routine Extremities Exam Present: full ROM, pulses intact, normal capillary refill. Absent: cyanosis, clubbing, edema - Routine Skin Exam Present: intact - Detailed Neurological Exam: Coma Scale Eye Opening: Spontaneous Verbal Response: Oriented Motor Response: Obey commands [place] Coma Scale Total: 15 - Routine Psychiatric Exam Present: normal affect Results 11/20/18 03:50 11/20/18 03:50 Cardiac Enzymes 11/19/18 11/19/18 11/20/18 Range/Units 17:10 23:45 03:50 AST 11 L (15-37) U/L Troponin I 0.12 H 0.13 H 0.10 H (0.02-0.05) ng/mL Coagulation 11/19/18 11/20/18 11/21/18 Range/Units 23:45 18:40 04:22 PT 32.7 H 46.0 H D 48.4 H (9.8-11.6) sec APTT 47.8 H (23.4-31.7) sec CBC 11/19/18 11/20/18 Range/Units 17:10 03:50 WBC 15.8 H 18.8 H (4.0-11.0) th/mm3 RBC 5.12 4.82 (4.00-5.30) mil/mm3 Hgb 10.0 L 9.7 L (11.6-15.3) gm/dL Hct 33.6 L 32.4 L (35.0-46.0) % Plt Count 246 213 (150-450) th/mm3 Neut # (Auto) 12.5 H 16.9 H (1.8-7.7) th/mm3 Lymph # (Auto) 2.3 1.3 (1.0-4.8) th/mm3 [place] # (Auto) 1.0 H 0.5 (0.0-0.9) th/mm3 Eos # (Auto) 0.0 0.0 (0.0-0.4) th/mm3 Baso # (Auto) 0.1 0.0 (0.0-0.2) th/mm3 Comprehensive Metabolic Panel 11/19/18 11/20/18 Range/Units 17:10 03:50 Sodium 140 140 (136-145) meq/L Potassium 4.0 3.8 (3.5-5.1) meq/L Chloride 103 105 (98-107) meq/L Carbon Dioxide 29.7 24.9 (21.0-32.0) meq/L BUN 11 10 (7-18) mg/dL Creatinine 1.15 H 0.95 (0.50-1.00) mg/dL Calcium 8.1 L 7.5 L (8.5-10.1) mg/dL AST 11 L (15-37) U/L ALT 12 (10-53) U/L Alkaline Phosphatase 62 (45-117) U/L Total Protein 7.7 (6.4-8.2) g/dL Albumin 3.2 L (3.4-5.0) g/dL Intake and Output 11/20/18 11/21/18 11/21/18 22:59 06:59 14:59 Intake Total 100 / 100 250 / 250 Balance 100 / 100 250 / 250 Intake: IV 100 / 100 250 / 250 Azithromycin Inj 500 MG In NS 250 / 250 Inj 250 ML @ 250 mls/hr IV.SIG Q24H [facility] Rx#:[id number] Rocephin Inj 1,000 MG In NS Inj 100 / 100 100 ML @ 200 mls/hr IV.SIG Q24H [facility] Rx#:[id number] Other: # Incontinent Voids 2 # Urine Diapers 4 2 Date of Last Bowel Movement 11/19/18 Weight 107 kg - Imaging and Cardiology Imaging: Impressions Chest X-Ray 11/19/18 16:48 CONCLUSION: Right upper lobe density, likely scarring. Assessment and Plan - Assessment (1) COPD exacerbation Code(s): J44.1 - Chronic obstructive pulmonary disease with (acute) exacerbation Status: Acute (2) Elevated troponin Code(s): R74.8 - Abnormal levels of other serum enzymes Status: Acute (3) History of DVT (deep vein thrombosis) Code(s): Z86.718 - Personal history of other venous thrombosis and embolism Status: Acute (4) Hypertension Code(s): I10 - Essential (primary) hypertension Status: Acute (5) Diabetes Code(s): E11.9 - Type 2 diabetes mellitus without complications Status: Acute - Plan 2D echo on 11/20/18 showed mildly reduced LV function with EF 45-50%, right ventricle is severely dilated, right atrial size moderately to severely dilated , trace to mild MR, mild to moderate TR and severe pulmonary hypertension. There are no new cardiac issues noted at this time, we will continue with current cardiac treatment plan. Continue current treatment for COPD exacerbation, pulmonary evaluation and treatment in progress. Increase her activity as she tolerates. Continue to monitor the patient on telemetry. We will continue to monitor the patient during her hospitalization. She will follow up with her primary ladies underwear operator, Dr. Mccloud, after discharge from the hospital. The patient was seen and evaluated by Dr. Dexter who participated in care, management and decision making. - Attending Attestation Patient seen and examined. I reviewed and agree with the evaluation and plan as presented. Echo shows RV dilatation and severe pulmonary hypertension; this is c /w severe COPD. No evidence of ACS. Continue tx for COPD exacerbation. Increase activity. F/u w Dr. Mccloud after discharge.
--- NOTE | 2018-11-21 16:57 | P.PNIM ---
Subjective Interval history: 83yo f admitted with pna, copd exacerbation and troponin elevation pt seen and examined doing a little better today , some pain with cough not much sputum production, no nv, no fever Physical Exam Vital signs: Vital Signs 11/20/18 17:10 11/20/18 19:26 11/20/18 20:00 Temperature 98.3 F Pulse Rate 66 67 66 Respiratory Rate 18 16 Blood Pressure 135/63 Pulse Oximetry 98 97 11/20/18 20:50 11/21/18 00:00 11/21/18 01:24 Temperature 98.4 F 98.4 F Pulse Rate 66 62 70 Respiratory Rate 18 18 Blood Pressure 119/58 L 111/59 L Pulse Oximetry 93 L 93 L 11/21/18 04:00 11/21/18 05:48 11/21/18 07:31 Temperature 98.4 F Pulse Rate 60 69 65 Respiratory Rate 18 17 Blood Pressure 169/71 H Pulse Oximetry 92 L 97 11/21/18 08:00 11/21/18 12:00 11/21/18 12:02 Temperature 97.6 F 97.8 F Pulse Rate 63 64 62 Respiratory Rate 25 H 22 Blood Pressure 178/81 H 125/57 L Pulse Oximetry 99 91 L 11/21/18 12:24 Temperature Pulse Rate 64 Respiratory Rate 17 Blood Pressure Pulse Oximetry Intake & Output 11/20/18 11/21/18 11/21/18 18:59 06:59 18:59 Intake Total 350 / 350 Balance 350 / 350 Weight 107 kg Intake: IV 350 / 350 Azithromycin Inj 500 MG In NS 250 / 250 Inj 250 ML @ 250 mls/hr IV.SIG Q24H [facility] Rx#:[id number] Rocephin Inj 1,000 MG In NS Inj 100 / 100 100 ML @ 200 mls/hr IV.SIG Q24H [facility] Rx#:[id number] Other: # Incontinent Voids 2 # Urine Diapers 4 2 Date of Last Bowel Movement 11/19/18 11/19/18 Narrative: wdwn 83yo aaf aaox2 mild forgetful no distress heart s1s2 reg lungs tight air movment w diffuse ins exp wheeze abd soft nondt pos bs nondt no mass ext no edema, no calf tenderness Results Labs CBC & Chem 7: 11/20/18 03:50 11/20/18 03:50 Labs: Microbiology 11/20/18 15:20 Sputum - Expectorated Sputum Gram Stain - Final 11/20/18 15:20 Sputum - Expectorated Sputum Sputum Culture - Preliminary Heavy growth normal respiratory nenita at 24 hours 11/19/18 17:10 Blood - Peripheral Aerobic Blood Culture - Preliminary No growth in 2 days 11/19/18 17:10 Blood - Peripheral Anaerobic Blood Culture - Preliminary No growth in 2 days 11/19/18 17:10 Blood - Peripheral Aerobic Blood Culture - Preliminary No growth in 2 days 11/19/18 17:10 Blood - Peripheral Anaerobic Blood Culture - Preliminary No growth in 2 days Assessment and Plan (1) COPD exacerbation: Code(s): J44.1 - Chronic obstructive pulmonary disease with (acute) exacerbation Status: Acute (2) Elevated troponin: Code(s): R74.8 - Abnormal levels of other serum enzymes Status: Acute (3) History of DVT (deep vein thrombosis): Code(s): Z86.718 - Personal history of other venous thrombosis and embolism Status: Acute (4) Hypertension: Code(s): I10 - Essential (primary) hypertension Status: Acute (5) Diabetes: Code(s): E11.9 - Type 2 diabetes mellitus without complications Status: Acute Plan ACTUE EXACERBATION COPD cotninue steroids nebs and oxygen ACUTE HYPOXIC on CHRONIC HYPOXIC RESP FAILURE - supplemental oxygen CLINICAL PNA w fever and sirs on admission - cont iv abx fu sputum and blood cxs , flue swab neg, TROPONIN ELEVATION w nonspec EKG changes wo ACS - cardio following , cont asa coreg, coumadin, nitrates prn echo w lvh, ef 45%, severe PHTN PAP>70% w dilated r atrium and rv and TR, MR , cont med management DM - cont iss, diet meds HTN- stable cont home meds Hx DVT on coumadin, consult pharmacy to manage, inr 4.8 hold coumadin for now ESSENTIAL TREMORS on primidone GERD on omeprazole DEPRESSION /ANXIETY - xanax and citalopram dvt prophylaxis inr 4.8 , hold coumadin dispo - to home w [facility] when stable. 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
[2018-11-22] MEDS: Insulin NovoLOG Aspart Correctional Sugar Inj SQ SCH ×5 (03:04→20:44)
[2018-11-22] MEDS: Citalopram 20 MG Tablet PO SCH (08:45)
[2018-11-22] MEDS: Furosemide 40 MG Tablet PO SCH (08:45)
[2018-11-22] MEDS: ALPRAZolam 0.5 MG Tablet PO SCH ×3 (08:46→18:19)
[2018-11-22] MEDS: MethylPREDNISolone Sod Succinate Inj 40 MG/ML Vial IV.PUSH SCH ×2 (08:46→20:43)
[2018-11-22] MEDS: Senna/Docusate Sodium 8.6/50 MG Tablet PO SCH ×2 (08:46→20:43)
[2018-11-22] MEDS: levoFLOXacin 500 MG Tablet PO SCH (08:46)
[2018-11-22 10:48] LABS: INR 3.3 Ratio; Prothrombin Time 33.5 sec (9.8-11.6)
--- NOTE | 2018-11-22 12:36 | P.PNPL ---
Subjective Interval history: Patient is on 3-4L oxygen, afebrile. Looks comfortable. Physical Exam Vital signs: Vital Signs 11/21/18 16:00 11/21/18 16:59 11/21/18 19:34 Temperature 97.8 F Pulse Rate 79 75 63 Respiratory Rate 20 16 Blood Pressure 160/70 H Pulse Oximetry 94 L 11/21/18 20:00 11/22/18 00:00 11/22/18 04:00 Temperature 97.9 F 97.7 F 98.3 F Pulse Rate 59 L 73 52 L Respiratory Rate 16 16 Blood Pressure 164/71 H 133/68 133/68 Pulse Oximetry 92 L 92 L 94 L 11/22/18 07:20 11/22/18 07:48 Temperature 97.8 F Pulse Rate 88 52 L Respiratory Rate 17 14 Blood Pressure 165/77 H Pulse Oximetry 94 L 96 Intake & Output 11/21/18 11/22/18 11/22/18 18:59 06:59 18:59 Output Total 1200 / 1200 Balance -1200 / -1200 Output: Urine 1200 / 1200 Other: # Voids 4 # Urine Diapers 5 Date of Last Bowel Movement 11/19/18 11/19/18 # Bowel Movements 1 - Constitutional no acute distress, obese - Routine HEENT Exam Head: Present: normocephalic, atraumatic Eye: Present: EOMI, PERRL, normal accommodation, conjunctivae pink ENT: Present: mucous membranes moist - Routine Neck Exam Present: supple, full ROM, trachea midline - Routine Respiratory Exam Present: CTA bilaterally - Routine Cardiovascular Exam Present: RRR, S1, S2 - Routine Abdominal Exam Present: soft, normoactive bowel sounds - Routine Skin Exam Present: intact, dry - Routine Neurological Exam Present: alert, oriented X3, CN II-XII intact Assessment and Plan - Plan 1)Resp Insuff 2)COPD 3) Obesity 4)Microcytic anemia 5)Leukocytosis 6)Hx DVT 7)Coagulopathy Plan Wean down oxygen as rik keep sats >92% Bronchodilators Continue Solumederol 40mg Q12 Abx- On Levaquin. Sputum cx and Influenza screening negative Monitor CBC, Coags GI/DVT prophylaxis - on Coumadin with INR 3.3 today.
--- NOTE | 2018-11-22 15:35 | P.PNIM ---
Subjective Interval history: 83yo f admitted with acute on chronic hypoxic resp failure, copd exacerbation and pna pt seen and examined, doing better today, denies sob, no cp, no nv still some cough and pain w cough, less sputum Physical Exam Vital signs: Vital Signs 11/21/18 16:00 11/21/18 16:59 11/21/18 19:34 Temperature 97.8 F Pulse Rate 79 75 63 Respiratory Rate 20 16 Blood Pressure 160/70 H Pulse Oximetry 94 L 11/21/18 20:00 11/22/18 00:00 11/22/18 04:00 Temperature 97.9 F 97.7 F 98.3 F Pulse Rate 59 L 73 52 L Respiratory Rate 16 16 Blood Pressure 164/71 H 133/68 133/68 Pulse Oximetry 92 L 92 L 94 L 11/22/18 07:20 11/22/18 07:48 11/22/18 08:00 Temperature 97.8 F Pulse Rate 88 52 L 54 L Respiratory Rate 17 14 Blood Pressure 165/77 H Pulse Oximetry 94 L 96 11/22/18 11:55 11/22/18 12:00 Temperature 97.6 F Pulse Rate 60 58 L Respiratory Rate 17 Blood Pressure 180/81 H Pulse Oximetry 94 L Intake & Output 11/21/18 11/22/18 11/22/18 18:59 06:59 18:59 Output Total 1200 / 1200 Balance -1200 / -1200 Output: Urine 1200 / 1200 Other: # Voids 4 # Urine Diapers 5 Date of Last Bowel Movement 11/19/18 11/19/18 11/22/18 # Bowel Movements 1 Narrative: wdwn 83yo aaf aaox2 mild forgetful pleasant, no distress heart s1s2 reg lungs better air movment w diffuse ins exp wheeze imrpoved abd soft nondt pos bs nondt no mass ext no edema, no calf tenderness Results Labs CBC & Chem 7: 11/20/18 03:50 11/20/18 03:50 Labs: Microbiology 11/20/18 15:20 Sputum - Expectorated Sputum Gram Stain - Final 11/20/18 15:20 Sputum - Expectorated Sputum Sputum Culture - Final Heavy growth normal respiratory nenita 11/19/18 17:10 Blood - Peripheral Aerobic Blood Culture - Preliminary No growth in 3 days 11/19/18 17:10 Blood - Peripheral Anaerobic Blood Culture - Preliminary No growth in 3 days 11/19/18 17:10 Blood - Peripheral Aerobic Blood Culture - Preliminary No growth in 3 days 11/19/18 17:10 Blood - Peripheral Anaerobic Blood Culture - Preliminary No growth in 3 days Assessment and Plan (1) COPD exacerbation: Code(s): J44.1 - Chronic obstructive pulmonary disease with (acute) exacerbation Status: Acute (2) Elevated troponin: Code(s): R74.8 - Abnormal levels of other serum enzymes Status: Acute (3) History of DVT (deep vein thrombosis): Code(s): Z86.718 - Personal history of other venous thrombosis and embolism Status: Acute (4) Hypertension: Code(s): I10 - Essential (primary) hypertension Status: Acute (5) Diabetes: Code(s): E11.9 - Type 2 diabetes mellitus without complications Status: Acute Plan ACTUE EXACERBATION COPD cotninue steroids nebs and oxygen, wean iv steroids ACUTE HYPOXIC on CHRONIC HYPOXIC RESP FAILURE - supplemental oxygen wean as tolerated CLINICAL PNA w fever and sirs on admission - cont iv abx fu sputum and blood cxs , flue swab neg, TROPONIN ELEVATION w nonspec EKG changes wo ACS - cardio following , cont asa coreg, coumadin, nitrates prn echo w lvh, ef 45%, severe PHTN PAP>70% w dilated r atrium and rv and TR, MR , cont med management stable DM - cont iss, diet meds HTN- stable cont home meds Hx DVT on coumadin, consult pharmacy to manage, inr 4.8-->3.3 ESSENTIAL TREMORS on primidone GERD on omeprazole DEPRESSION /ANXIETY - xanax and citalopram dvt prophylaxis - coumadin dispo - to home w [facility] when stable 1-2 days when ok w pulmonology Progress Note: Quality VTE Deep Vein Thrombosis/Pulmonary Embolism Present on Admission: Yes _ (1) Hypertension Qualifiers: Hypertension type: (2) Diabetes Qualifiers: Diabetes mellitus type: Diabetes mellitus trailer chief insulin use: Diabetes mellitus complication status: Diabetes mellitus complication detail: Diabetic retinopathy severity: Proliferative retinopathy type: Diabetes mellitus macular edema: Laterality: Chronic kidney disease stage:
[2018-11-23] MEDS: Insulin NovoLOG Aspart Correctional Sugar Inj SQ SCH ×5 (03:14→20:42)
[2018-11-23] MEDS: Furosemide 40 MG Tablet PO SCH (08:41)
[2018-11-23] MEDS: ALPRAZolam 0.5 MG Tablet PO SCH ×4 (08:42→17:04)
[2018-11-23] MEDS: MethylPREDNISolone Sod Succinate Inj 40 MG/ML Vial IV.PUSH SCH ×2 (08:42→20:41)
[2018-11-23] MEDS: levoFLOXacin 500 MG Tablet PO SCH (08:42)
[2018-11-23] MEDS: Senna/Docusate Sodium 8.6/50 MG Tablet PO SCH ×2 (08:42→20:44)
[2018-11-23] MEDS: Citalopram 20 MG Tablet PO SCH (08:42)
[2018-11-23 09:16] LABS: INR 2.4 Ratio
--- NOTE | 2018-11-23 11:08 | P.PNPL ---
Subjective Interval history: Patient is on 4L oxygen, denies any worsening dyspnea from baseline, Afebrile. Physical Exam Vital signs: Vital Signs 11/22/18 11:55 11/22/18 12:00 11/22/18 15:42 Temperature 97.6 F Pulse Rate 60 58 L 54 L Respiratory Rate 17 14 Blood Pressure 180/81 H Pulse Oximetry 94 L 11/22/18 16:00 11/22/18 16:50 11/22/18 19:20 Temperature 98.2 F 98.0 F Pulse Rate 71 65 54 L Respiratory Rate 17 16 Blood Pressure 162/74 H 156/66 H Pulse Oximetry 94 L 11/22/18 19:35 11/22/18 19:37 11/22/18 20:00 Temperature Pulse Rate 62 59 L Respiratory Rate 18 Blood Pressure Pulse Oximetry 89 L 92 L 95 11/22/18 22:30 11/23/18 00:00 11/23/18 03:35 Temperature 98.1 F 97.7 F Pulse Rate 87 55 L 59 L Respiratory Rate 18 20 Blood Pressure 165/103 H 172/73 H Pulse Oximetry 94 L 94 L 11/23/18 04:00 11/23/18 07:27 11/23/18 08:54 Temperature 97.7 F Pulse Rate 59 L 60 63 Respiratory Rate 18 18 Blood Pressure 163/74 H Pulse Oximetry 95 94 L Intake & Output 11/22/18 11/23/18 11/23/18 18:59 06:59 18:59 Intake Total 960 / 960 480 / 480 Output Total 1500 / 1500 1000 / 1000 800 / 800 Balance -540 / -540 -520 / -520 -800 / -800 Weight 105.2 kg Intake: Oral 960 / 960 480 / 480 Output: Urine 1500 / 1500 1000 / 1000 800 / 800 Other: # Voids 1 Date of Last Bowel Movement 11/22/18 11/22/18 11/22/18 # Bowel Movements 2 - Constitutional no acute distress, obese - Routine HEENT Exam Head: Present: normocephalic, atraumatic Eye: Present: EOMI, PERRL, normal accommodation, conjunctivae pink - Routine Neck Exam Present: supple, full ROM, trachea midline - Routine Respiratory Exam Present: CTA bilaterally - Routine Cardiovascular Exam Present: RRR, S1, S2 - Routine Abdominal Exam Present: soft, normoactive bowel sounds - Routine Extremities Exam Present: full ROM, pulses intact - Routine Skin Exam Present: intact, dry - Routine Neurological Exam Present: alert, oriented X3, CN II-XII intact Assessment and Plan - Plan 1)Resp Insuff 2)COPD- O2 dependent 3) Obesity 4)Microcytic anemia 5)Leukocytosis 6)Hx DVT 7)Coagulopathy Plan Continue with oxygen as rik keep sats >92% Bronchodilators Solumederol 40mg Q12 BIPAP PRN for resp distress Abx- On Levaquin. Sputum cx and Influenza screening negative Monitor CBC, Coags GI/DVT prophylaxis - on Coumadin with INR 2.4 today.
[2018-11-23] MEDS ORDERED: guaiFENesin/Dextromethorphan 200 MG/20 MG 10 ML UDC PO PRN (13:24)
[2018-11-23] MEDS ORDERED: Benzonatate 100 MG Capsule PO PRN (13:24)
--- NOTE | 2018-11-23 17:23 | P.PNIM ---
Subjective Interval history: 83-year-old female admitted with acute on chronic hypoxic respiratory failure and COPD exacerbation with pneumonia Patient seen and examined, states she had a rough night with severe cough and sputum production, denies chest pain, no nausea vomiting, no fever Physical Exam Vital signs: Vital Signs 11/22/18 19:20 11/22/18 19:35 11/22/18 19:37 Temperature 98.0 F Pulse Rate 54 L 62 Respiratory Rate 16 18 Blood Pressure 156/66 H Pulse Oximetry 89 L 92 L 11/22/18 20:00 11/22/18 22:30 11/23/18 00:00 Temperature 98.1 F Pulse Rate 59 L 87 55 L Respiratory Rate 18 Blood Pressure 165/103 H Pulse Oximetry 95 94 L 11/23/18 03:35 11/23/18 04:00 11/23/18 07:27 Temperature 97.7 F 97.7 F Pulse Rate 59 L 59 L 60 Respiratory Rate 20 18 Blood Pressure 172/73 H 163/74 H Pulse Oximetry 94 L 95 11/23/18 08:54 11/23/18 11:31 11/23/18 12:58 Temperature 98.1 F Pulse Rate 63 70 66 Respiratory Rate 18 18 18 Blood Pressure 125/60 Pulse Oximetry 94 L 95 Intake & Output 11/22/18 11/23/18 11/23/18 18:59 06:59 18:59 Intake Total 960 / 960 480 / 480 Output Total 1500 / 1500 1000 / 1000 800 / 800 Balance -540 / -540 -520 / -520 -800 / -800 Weight 105.2 kg Intake: Oral 960 / 960 480 / 480 Output: Urine 1500 / 1500 1000 / 1000 800 / 800 Other: # Voids 1 Date of Last Bowel Movement 11/22/18 11/22/18 11/22/18 # Bowel Movements 2 Narrative: wdwn 83yo aaf aaox2 mild forgetful pleasant, no distress heart s1s2 reg lungs better air movment less wheeze, better expansion, no abd soft nondt pos bs nondt no mass ext no edema, no calf tenderness Results Labs CBC & Chem 7: 11/20/18 03:50 11/20/18 03:50 Labs: Microbiology 11/19/18 17:10 Blood - Peripheral Aerobic Blood Culture - Preliminary No growth in 4 days 11/19/18 17:10 Blood - Peripheral Anaerobic Blood Culture - Preliminary No growth in 4 days 11/19/18 17:10 Blood - Peripheral Aerobic Blood Culture - Preliminary No growth in 4 days 11/19/18 17:10 Blood - Peripheral Anaerobic Blood Culture - Preliminary No growth in 4 days 11/20/18 15:20 Sputum - Expectorated Sputum Gram Stain - Final 11/20/18 15:20 Sputum - Expectorated Sputum Sputum Culture - Final Heavy growth normal respiratory nenita Assessment and Plan (1) COPD exacerbation: Code(s): J44.1 - Chronic obstructive pulmonary disease with (acute) exacerbation Status: Acute (2) Elevated troponin: Code(s): R74.8 - Abnormal levels of other serum enzymes Status: Acute (3) History of DVT (deep vein thrombosis): Code(s): Z86.718 - Personal history of other venous thrombosis and embolism Status: Acute (4) Hypertension: Code(s): I10 - Essential (primary) hypertension Status: Acute (5) Diabetes: Code(s): E11.9 - Type 2 diabetes mellitus without complications Status: Acute Plan ACTUE EXACERBATION COPD cotninue steroids nebs wean IV and oxygen, still on 4 L nasal cannula ACUTE HYPOXIC on CHRONIC HYPOXIC RESP FAILURE - supplemental oxygen wean as tolerated CLINICAL PNA w fever and sirs on admission - cont iv abx fu sputum and blood cxs , flue swab neg, changed to p.o. 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 stable GERD on omeprazole DEPRESSION /ANXIETY - xanax and citalopram dvt prophylaxis - coumadin theraputic dispo - to home w hhc when stable 1-2 days when ok w pulmonology, add antitussive today, symptomatic tx Progress Note: Quality VTE Deep Vein Thrombosis/Pulmonary Embolism Present on Admission: Yes _ (1) Hypertension Qualifiers: Hypertension type: (2) Diabetes Qualifiers: Diabetes mellitus type: Diabetes mellitus long term care social worker insulin use: Diabetes mellitus complication status: Diabetes mellitus complication detail: Diabetic retinopathy severity: Proliferative retinopathy type: Diabetes mellitus macular edema: Laterality: Chronic kidney disease stage:
[2018-11-24] MEDS: Insulin NovoLOG Aspart Correctional Sugar Inj SQ SCH ×5 (02:33→21:46)
[2018-11-24] MEDS: ALPRAZolam 0.5 MG Tablet PO SCH ×3 (08:01→17:24)
[2018-11-24] MEDS: levoFLOXacin 500 MG Tablet PO SCH (08:02)
[2018-11-24] MEDS: Citalopram 20 MG Tablet PO SCH (08:02)
[2018-11-24] MEDS: Furosemide 40 MG Tablet PO SCH (08:02)
[2018-11-24] MEDS: MethylPREDNISolone Sod Succinate Inj 40 MG/ML Vial IV.PUSH SCH (08:03)
[2018-11-24] MEDS: Senna/Docusate Sodium 8.6/50 MG Tablet PO SCH ×2 (08:04→21:45)
[2018-11-24 08:06] LABS: INR 2.1 Ratio; Prothrombin Time 21.3 sec (9.8-11.6)
[2018-11-24 13:54] LABS: ABG Base Excess 7.7 mmol/L (-2-2); ABG PCO2 45 mmHg (38-42); ABG PO2 46 mmHg (61-120)
--- NOTE | 2018-11-24 16:00 | P.PNCA ---
Subjective Interval history: Patient is sitting up in a chair and appears to be in no distress. She states that she is feeling much better at this time. She denies any CP, pressure, palpitations or dizziness. She does complain of a cough with mild SOB. Medications and Allergies Allergies Allergy/AdvReac Type Severity Reaction Status Date / Time No Known Allergies Allergy Verified 11/19/18 16:38 Home Medications Medication Instructions Recorded Confirmed Type alprazolam [Xanax] 0.5 mg PO TID 11/19/18 11/19/18 History aspirin 81 mg PO DAILY 11/19/18 11/19/18 History carvedilol [Coreg] 3.125 mg PO TID 11/19/18 11/19/18 History citalopram 20 mg PO DAILY 11/19/18 11/19/18 History furosemide [Lasix] 40 mg PO DAILY 11/19/18 11/19/18 History omeprazole 40 mg PO BID 11/19/18 11/19/18 History primidone 25 mg PO Q12H 11/19/18 11/19/18 History warfarin [Coumadin] 5 mg PO DAILY 11/19/18 11/19/18 History Active Medications: Active Medications Acetaminophen (Tylenol) 650 mg PO Q4H PRN PRN Reason: Temp > 100.4 Al Hydroxide/Mg Hydroxide (Milk Of Fer Shaw) 30 ml PO Q12H PRN PRN Reason: Mild Constipation Albuterol (Duoneb Neb (Prn)) 1 ampul NEB Q4HR NEB PRN PRN Reason: SHORTNESS OF BREATH/WHEEZING Albuterol (Duoneb Neb (Kavita)) 1 ampul NEB TID NEB [facility] Last Admin: 11/24/18 13:18 Dose: Not Given Alprazolam (Xanax) 0.5 mg PO TID [facility] Last Admin: 11/24/18 12:08 Dose: 0.5 mg Aspirin (Aspirin Chew) 81 mg PO DAILY [facility] Last Admin: 11/24/18 08:00 Dose: 81 mg Benzonatate (Tessalon Perles) 200 mg PO Q8H PRN PRN Reason: COUGH Bisacodyl (Dulcolax Supp) 10 mg RECTAL DAILY PRN PRN Reason: SEVERE CONSITIPATION Carvedilol (Coreg) 3.125 mg PO TID [facility] Last Admin: 11/24/18 12:08 Dose: 3.125 mg Citalopram Hydrobromide (Celexa) 20 mg PO DAILY [facility] Last Admin: 11/24/18 08:02 Dose: 20 mg Dextrose (D50w Vial) 50 ml IV.PUSH UNSCH PRN PRN Reason: PER HYPOGLYCEMIA PROTOCOL Furosemide (Lasix) 40 mg PO DAILY [facility] Last Admin: 11/24/18 08:02 Dose: 40 mg Glucagon (Glucagon Inj) 1 mg OTHER PRN PRN PRN Reason: for Hypoglycemia Protocol Guaifenesin/Dextromethorphan (Robitussin Dm Liq) 10 ml PO Q6H PRN PRN Reason: COUGH Insulin Aspart (Novolog Insulin [employer] Sugar Inj) 0 unit SQ ACHS AND 3AM KAVITA; Protocol Last Admin: 11/24/18 12:07 Dose: 1 unit Lactulose (Lactulose Liq) 30 ml PO DAILY PRN PRN Reason: SEVERE CONSITIPATION Levofloxacin (Levaquin) 500 mg PO DAILY [facility] Last Admin: 11/24/18 08:02 Dose: 500 mg Ondansetron HCl (Zofran Inj) 4 mg IV.PUSH Q6H PRN PRN Reason: NAUSEA OR VOMITING Pantoprazole Sodium (Protonix) 40 mg PO DAILY [facility] Pharmacy Profile Note (Coumadin Consult Pharmacy) 1 each OTHER UNSCH PRN PRN Reason: PHARMACY DOCUMENTATION Prednisone (Deltasone) 20 mg PO BID [facility] Senna/Docusate Sodium (Kori-Colace) 1 tab PO BID [facility] Last Admin: 11/24/18 08:04 Dose: 1 tab Sennosides (Senokot) 17.2 mg PO Q12H PRN PRN Reason: Moderate Constipation Last Admin: 11/21/18 13:56 Dose: 17.2 mg Sodium Chloride (Ns Flush) 2 ml IV.FLUSH BID [facility] Last Admin: 11/24/18 08:03 Dose: 2 ml Sodium Chloride (Ns Flush) 2 ml IV.FLUSH BID [facility] Last Admin: 11/24/18 08:03 Dose: Not Given Sodium Chloride (Ns Flush) 2 ml IV.FLUSH PRN PRN PRN Reason: FLUSH AFTER USING IV ACCESS Sodium Chloride (Ns Flush) 2 ml IV.FLUSH PRN PRN PRN Reason: FLUSH AFTER USING IV ACCESS Warfarin Sodium (Coumadin) 3 mg PO DAILY@1600 [facility] Last Admin: 11/24/18 15:22 Dose: 3 mg Physical Exam Vital signs: Vital Signs 11/23/18 16:00 11/23/18 19:50 11/23/18 19:55 Temperature 98.0 F Pulse Rate 63 57 L 52 L Respiratory Rate 15 17 Blood Pressure 175/72 H Pulse Oximetry 97 95 11/23/18 20:00 11/23/18 22:55 11/24/18 00:00 Temperature 98.2 F Pulse Rate 58 L 52 L 68 Respiratory Rate 17 Blood Pressure 119/71 Pulse Oximetry 93 L 11/24/18 03:35 11/24/18 04:00 11/24/18 05:41 Temperature 97.8 F Pulse Rate 69 55 L Respiratory Rate 18 Blood Pressure 182/74 H 148/84 H Pulse Oximetry 100 11/24/18 07:44 11/24/18 08:02 11/24/18 08:10 Temperature 97.5 F L Pulse Rate 70 54 L 55 L Respiratory Rate 20 18 Blood Pressure 169/74 H Pulse Oximetry 95 11/24/18 12:00 11/24/18 12:02 Temperature 97.9 F Pulse Rate 58 L 63 Respiratory Rate 18 Blood Pressure 119/70 Pulse Oximetry 97 Intake & Output 11/23/18 11/24/18 11/24/18 18:59 06:59 18:59 Intake Total 120 / 120 Output Total 800 / 800 1100 / 1100 Balance -800 / -800 -980 / -980 Weight 102.5 kg Intake: Oral 120 / 120 Output: Urine 800 / 800 1100 / 1100 Other: # Voids 1 # Urine Diapers 1 Date of Last Bowel Movement 11/22/18 11/22/18 11/22/18 - Constitutional no acute distress - Routine HEENT Exam Head: Present: normocephalic Eye: Present: PERRL ENT: Present: mucous membranes moist - Routine Neck Exam Present: full ROM - Routine Respiratory Exam Present: rhonchi, crackles - Routine Cardiovascular Exam Present: S1, S2. Absent: murmur, gallop, rubs - Routine Abdominal Exam Present: normoactive bowel sounds - Routine Extremities Exam Present: edema, full ROM, pulses intact, normal capillary refill. Absent: cyanosis, clubbing Comments: trace - Routine Skin Exam Present: intact - Routine Neurological Exam Present: oriented X3 - Detailed Neurological Exam: Coma Scale Eye Opening: Spontaneous Verbal Response: Oriented Motor Response: [place] commands [place] Coma Scale Total: 15 - Routine Psychiatric Exam Present: normal affect Results 11/20/18 03:50 11/20/18 03:50 Coagulation 11/23/18 11/24/18 Range/Units 07:07 07:38 PT 24.0 H 21.3 H (9.8-11.6) sec Intake and Output 11/24/18 11/24/18 11/24/18 06:59 14:59 22:59 Intake Total 120 / 120 Output Total 1100 / 1100 Balance -980 / -980 Intake: Oral 120 / 120 Output: Urine 1100 / 1100 Other: # Urine Diapers 1 Date of Last Bowel Movement 11/22/18 Weight 102.5 kg Assessment and Plan - Assessment (1) COPD exacerbation Code(s): J44.1 - Chronic obstructive pulmonary disease with (acute) exacerbation Status: Acute (2) Elevated troponin Code(s): R74.8 - Abnormal levels of other serum enzymes Status: Acute (3) History of DVT (deep vein thrombosis) Code(s): Z86.718 - Personal history of other venous thrombosis and embolism Status: Acute (4) Hypertension Code(s): I10 - Essential (primary) hypertension Status: Acute (5) Diabetes Code(s): E11.9 - Type 2 diabetes mellitus without complications Status: Acute - Plan There are no new cardiac issues noted at this time. Pulmonary evaluation and treatment in progress for COPD exacerbation. Continue to increase her activity as she tolerates. We anticipate her discharge soon. We will continue to monitor the patient during her hospitalization. She will follow up with her primary charge account clerk, Dr. Mccloud, after discharge from the hospital. The patient was seen and evaluated by Dr. Dexter who participated in care, management and decision making. - Attending Attestation Patient seen and examined. I reviewed and agree with the evaluation and plan as presented. Continue tx for COPD exacerbation. No new cardiac issues. Increase activity, PT.
--- NOTE | 2018-11-24 17:47 | P.PNIM ---
Subjective Interval history: 83yo aaf admitted with acute exacerbation of COPD w acute on chronic hypoxemia and pna and troponin elevation pt seen and examined ,doing fair still on 4 L nc, states cough is a little better having severe coughing spells w sputum yesterday Physical Exam Vital signs: Vital Signs 11/23/18 19:50 11/23/18 19:55 11/23/18 20:00 Temperature 98.0 F Pulse Rate 57 L 52 L 58 L Respiratory Rate 15 17 Blood Pressure 175/72 H Pulse Oximetry 97 95 11/23/18 22:55 11/24/18 00:00 11/24/18 03:35 Temperature 98.2 F 97.8 F Pulse Rate 52 L 68 69 Respiratory Rate 17 18 Blood Pressure 119/71 182/74 H Pulse Oximetry 93 L 100 11/24/18 04:00 11/24/18 05:41 11/24/18 07:44 Temperature Pulse Rate 55 L 70 Respiratory Rate 20 Blood Pressure 148/84 H Pulse Oximetry 11/24/18 08:02 11/24/18 08:10 11/24/18 12:00 Temperature 97.5 F L Pulse Rate 54 L 55 L 58 L Respiratory Rate 18 Blood Pressure 169/74 H Pulse Oximetry 95 11/24/18 12:02 11/24/18 16:00 11/24/18 16:02 Temperature 97.9 F 97.5 F L Pulse Rate 63 52 L 52 L Respiratory Rate 18 17 Blood Pressure 119/70 137/70 Pulse Oximetry 97 98 Intake & Output 11/23/18 11/24/18 11/24/18 18:59 06:59 18:59 Intake Total 120 / 120 Output Total 800 / 800 1100 / 1100 Balance -800 / -800 -980 / -980 Weight 102.5 kg Intake: Oral 120 / 120 Output: Urine 800 / 800 1100 / 1100 Other: # Voids 1 # Urine Diapers 1 Date of Last Bowel Movement 11/22/18 11/22/18 11/22/18 Narrative: wdwn 83yo aaf aaox2 mild forgetful verypleasant, no distress heart s1s2 reg lungs better air movment wheezegone, better expansion, no rhonchi abd soft nondt pos bs nondt no mass ext no edema, no calf tenderness Results Labs CBC & Chem 7: 11/20/18 03:50 11/20/18 03:50 Labs: Microbiology 11/19/18 17:10 Blood - Peripheral Aerobic Blood Culture - Final No growth in 5 days 11/19/18 17:10 Blood - Peripheral Anaerobic Blood Culture - Final No growth in 5 days 11/19/18 17:10 Blood - Peripheral Aerobic Blood Culture - Final No growth in 5 days 11/19/18 17:10 Blood - Peripheral Anaerobic Blood Culture - Final No growth in 5 days Assessment and Plan (1) COPD exacerbation: Code(s): J44.1 - Chronic obstructive pulmonary disease with (acute) exacerbation Status: Acute (2) Elevated troponin: Code(s): R74.8 - Abnormal levels of other serum enzymes Status: Acute (3) History of DVT (deep vein thrombosis): Code(s): Z86.718 - Personal history of other venous thrombosis and embolism Status: Acute (4) Hypertension: Code(s): I10 - Essential (primary) hypertension Status: Acute (5) Diabetes: Code(s): E11.9 - Type 2 diabetes mellitus without complications Status: Acute Plan ACTUE EXACERBATION CHRONIC COPD continue steroids nebs wean IV and oxygen, still on 4 L nasal cannula ACUTE HYPOXIC on CHRONIC HYPOXIC RESP FAILURE - supplemental oxygen wean as tolerated on home o2 3lnc wean steroids to po CLINICAL PNA w fever and sirs on admission - cont iv abx fu sputum cx is heavy growth nml nenita and blood cxs neg x 2, flue swab neg, changed to p.o. quinolone TROPONIN ELEVATION w nonspec EKG changes wo ACS - cardio following , cont asa coreg, coumadin, nitrates prn echo w lvh, ef 45%, severe PHTN PAP>70% w dilated r atrium and rv and TR, MR , cont med management stable, fu w her tools developer as outpt DM - cont iss, diet meds HTN- stable cont home meds Hx DVT on coumadin, consult pharmacy to manage, inr 4.8-->3.3-->2.4->2.1 ESSENTIAL TREMORS on primidone stable GERD on omeprazole DEPRESSION /ANXIETY - xanax and citalopram dvt prophylaxis - coumadin theraputic dispo - to home w hhc in am if stable Progress Note: Quality VTE Deep Vein Thrombosis/Pulmonary Embolism Present on Admission: Yes _ (1) Hypertension Qualifiers: Hypertension type: (2) Diabetes Qualifiers: Diabetes mellitus type: Diabetes mellitus detention insulin use: Diabetes mellitus complication status: Diabetes mellitus complication detail: Diabetic retinopathy severity: Proliferative retinopathy type: Diabetes mellitus macular edema: Laterality: Chronic kidney disease stage:
--- NOTE | 2018-11-24 17:54 | P.DCO ---
Diagnosis (1) COPD exacerbation: Status: Acute Physical Therapy Order: Evaluate and treat, Improve ambulation and Strength and gait training Occupational Therapy Order: Evaluate and treat, Improve ADL, Gross motor coordination and Fine motor coordination Home Health Nursing Order: Oxygen administration education and Nursing assessment with vital signs Case Management Consult Case Management Consult-Home Health: Yes I have seen patient Farida Thompson on 11/24/18. My clinical findings support the need for the requested home health care services because: Limited mobility due to disease progression, Patient has SOB, Deconditioned with increased weakness, Limited ability to care for self and High risk of falls I certify that my clinical findings support that this patient is homebound because: Hx COPD - exertion dyspnea/weakness, Unsteady gait/balance, Unable to use public transportation and Poor cardiac reserve
[2018-11-24] MEDS: predniSONE 20 MG Tablet PO SCH (21:45)
[2018-11-25] MEDS: Insulin NovoLOG Aspart Correctional Sugar Inj SQ SCH ×2 (04:17→08:24)
[2018-11-25 06:06] VITALS: TEMP 97.4
[2018-11-25 07:23] LABS: INR 2.3 Ratio; Prothrombin Time 23.7 sec (9.8-11.6)
[2018-11-25 07:54] VITALS: O2SAT 97
[2018-11-25] MEDS: predniSONE 20 MG Tablet PO SCH (08:20)
[2018-11-25] MEDS: levoFLOXacin 500 MG Tablet PO SCH (08:21)
[2018-11-25] MEDS: Furosemide 40 MG Tablet PO SCH (08:22)
[2018-11-25] MEDS: ALPRAZolam 0.5 MG Tablet PO SCH (08:22)
[2018-11-25] MEDS: Citalopram 20 MG Tablet PO SCH (08:23)
[2018-11-25] MEDS: Senna/Docusate Sodium 8.6/50 MG Tablet PO SCH (08:24)
[2018-11-25 09:01] VITALS: RESP 18
--- NOTE | 2018-11-25 09:06 | P.DS ---
DS: Providers Date of admission: 11/19/18 19:03 Primary care physician: Surya Anderson MD Consults: 11/19/18 18:35 Consult to Cardiology Routine Consulting Provider: Tara Mccloud Does the patient have a District Court Justice who follows them?: Yes Preferred Material Crew Supervisor:: Tara Mccloud Reason for Consultation: elevated troponin Notified:: Service Spoke with:: LUC Date Notified:: 11/19/18 Time Notified:: 20:02 Comments:: 1929 [address] MCCLOUD ANSWERING SERVICE; NO ANSWER [phone]. [facility]IN AND THEY CAN NOT HELP WITH THIS, INSTRUCTED TO KEEP TRING TO DR MCCLOUD . 1950 TRIED CALLING [phone] LEFT MESSAGE ON PHONE Ordering Provider: AVNI Consult to Pulmonology Routine Consulting Provider: Armand Peter Preferred Basting Machine Operator:: Jorgito Urbina Patient known to:: Jorgito Urbina Reason for Consultation: COPD exacerbation versus PNA Notified:: Service Spoke with:: MINGO Date Notified:: 11/19/18 Time Notified:: 19:24 Ordering Provider: AVNI Brief History from admission: HPI as documented by the admitting physician: department for the evaluation of a cough. Patient reports her cough started last night and is productive of yellow/pink sputum. She was febrile on arrival to the emergency department however denies having any knowledge or symptoms of this. She denies any chest pain or shortness of breath despite being hypoxic to 83%. No abdominal pain. No nausea/vomiting/diarrhea. No focal neurologic deficits. Patient update on day of discharge: Patient reports she is feeling okay today. She is dressed and is anxious to go home. She does have oxygen at home and use it chronically. DS: Diagnosis Discharge Diagnosis (1) COPD exacerbation: Status: Acute DS: Summary 83-year-old female admitted with acute on chronic respiratory failure secondary to COPD exacerbation and clinical pneumonia. Patient was also found to have elevated cardiac enzymes. The patient was admitted and treated with IV steroids , antibiotics, supplemental oxygen. Cardiology following regarding elevated cardiac enzymes. No acute ACS. Patient medically treated. She was found to have severe pulmonary hypertension on echocardiogram and cardiomyopathy with EF of 45%. The patient's respiratory conditions improved. She is discharged on a prednisone taper, antibiotics and to resume home oxygen therapy. Other conditions treated include: DM -treated with sliding scale insulin and Accu-Cheks. Resume diabetic medications on discharge. HTN- stable cont home meds Hx DVT on coumadin, INR is therapeutic. ESSENTIAL TREMORS stable on primidone. GERD on omeprazole DEPRESSION /ANXIETY -stable on Xanax and citalopram Time Spent with Patient Total time spent providing and/or coordinating discharge services: Quality: VTE Deep Vein Thrombosis/Pulmonary Embolism Present on Admission: Yes Exam Narrative Exam Narrative: GENERAL: Obese and elderly female sitting up in the bed in no apparent distress. CARDIOVASCULAR: Normal rate and regular rhythm without murmurs, gallops, or rubs. RESPIRATORY: Good respiratory efforts. Breath sounds equal and clear to auscultation bilaterally. No wheezing. GASTROINTESTINAL: Abdomen soft, non-tender, non-distended. Normal active bowel sounds MUSCULOSKELETAL: Extremities trace bilateral lower extremity edema NEURO: Alert & Oriented x4 to person, place, time, situation. Moves all ext x4 PSYCH: Appropriate mood and affect. Results Labs on day of discharge: Labs from last 24 hours 11/25/18 11/25/18 11/25/18 07:28 07:00 04:07 PT 23.7 H INR 2.3 Puncture Site Patient Temperature O2 Saturation ABG pH ABG pCO2 ABG pO2 ABG HCO3 ABG O2 Content ABG Base Excess ABG Methemoglobin Michael Test Hemoglobin Carboxyhemoglobin O2 Delivery Device Inspired O2 Critical Value POC Glucose 153 H 178 H 11/24/18 11/24/18 11/24/18 20:08 17:06 13:47 PT INR Puncture Site Right radial Patient Temperature 98.6 O2 Saturation 78 L* ABG pH 7.47 H ABG pCO2 45 H ABG pO2 46 L* ABG HCO3 32 H ABG O2 Content 12.8 ABG Base Excess 7.7 H ABG Methemoglobin 1.3 Michael Test Y Hemoglobin 11.7 L Carboxyhemoglobin 1.4 O2 Delivery Device Room air Inspired O2 21 Critical Value Yes POC Glucose 253 H 201 H 11/24/18 11:29 PT INR Puncture Site Patient Temperature O2 Saturation ABG pH ABG pCO2 ABG pO2 ABG HCO3 ABG O2 Content ABG Base Excess ABG Methemoglobin Michael Test Hemoglobin Carboxyhemoglobin O2 Delivery Device Inspired O2 Critical Value POC Glucose 158 H Impressions ITS Impressions Chest X-Ray 11/19/18 16:48 CONCLUSION: Right upper lobe density, likely scarring. Discharge Plan Discharge Disposition Patient Disposition: W/Home Health Service Discharge Condition Condition: Good Discharge Order Discharge Orders: Discharge Order (Routine); Ordered 11/25/18 Ordered By: Javi Pittman Discharge Details Anticipated Discharge Date: 11/25/18 Physicians Team ED Provider: Fernanda Javier ED Midlevel Provider: Mary Moreno Primary Care Provider: Surya Anderson Attending Provider: Javi Pittman Other Providers: Armand Peter ; Tara Mccloud Rxs /Orders / Referrals /Forms Prescriptions: New benzonatate [Tessalon Perles] 100 mg Capsule 200 mg PO Q8H PRN (Reason: Cough) Qty: 20 RF: 0 levofloxacin 500 mg Tablet 500 mg PO DAILY Qty: 5 RF: 0 prednisone 5 mg tablets,dose pack 5 mg PO PER PKG DIR Qty: 21 RF: 0 Continue furosemide [Lasix] 40 mg Tablet 40 mg PO DAILY RF: 0 primidone 50 mg Tablet 25 mg PO Q12H RF: 0 citalopram 10 mg Tablet 20 mg PO DAILY RF: 0 carvedilol [Coreg] 3.125 mg Tablet 3.125 mg PO TID RF: 0 alprazolam [Xanax] 0.5 mg Tablet 0.5 mg PO TID RF: 0 warfarin [Coumadin] 5 mg Tablet 5 mg PO DAILY RF: 0 aspirin 81 mg Tablet,Chewable 81 mg PO DAILY RF: 0 omeprazole 20 mg Tablet,Delayed Release (Dr/Ec) 40 mg PO BID RF: 0 Ambulatory Orders / Order Sets / DME: [employer] 3-in-1 (1 each) (Routine) Timeframe: 99 Years Location: Determined by Patient Ordered By: Paulette Yeung Referrals: Armand Peter MD [Physician] - See Instructions (Please call the physician's office to make appointment to be seen within [2 wks or as directed].) Tara Mccloud MD [Physician] - See Instructions (Please call the physician' s office to make appointment to be seen within [2 wks or as directed].) Surya Anderson MD [Primary Care Provider] - See Instructions Discharge Instructions Patient Printed Instructions: Benzonatate (By mouth), Prednisone (By mouth), Levofloxacin (By mouth), COPD (Chronic Obstructive Pulmonary Disease) (GEN) Status ED Status: Left Department Discharge Information Discharge Date/Time: 11/25/18 10:30
[2018-11-25 09:36] VITALS: PULSE 46
[2018-11-25 10:32] VITALS: BP 160/67
--- NOTE | 2018-11-25 12:38 | P.PNCA ---
Subjective Interval history: Patient denies any CP, pressure, palpitations or dizziness. She does complain of mild edema and shortness of breath. Medications and Allergies Allergies Allergy/AdvReac Type Severity Reaction Status Date / Time No Known Allergies Allergy Verified 11/19/18 16:38 Home Medications Medication Instructions Recorded Confirmed Type alprazolam [Xanax] 0.5 mg PO TID 11/19/18 11/19/18 History aspirin 81 mg PO DAILY 11/19/18 11/19/18 History carvedilol [Coreg] 3.125 mg PO TID 11/19/18 11/19/18 History citalopram 20 mg PO DAILY 11/19/18 11/19/18 History furosemide [Lasix] 40 mg PO DAILY 11/19/18 11/19/18 History omeprazole 40 mg PO BID 11/19/18 11/19/18 History primidone 25 mg PO Q12H 11/19/18 11/19/18 History warfarin [Coumadin] 5 mg PO DAILY 11/19/18 11/19/18 History Physical Exam Vital signs: Vital Signs 11/24/18 16:00 11/24/18 16:02 11/24/18 19:00 Temperature 97.5 F L Pulse Rate 52 L 52 L 94 H Respiratory Rate 17 18 Blood Pressure 137/70 Pulse Oximetry 98 11/24/18 19:53 11/24/18 20:00 11/25/18 00:00 Temperature 98.1 F 97.2 F L Pulse Rate 50 L 55 L 51 L Respiratory Rate 16 16 Blood Pressure 156/56 H 137/60 Pulse Oximetry 98 100 11/25/18 01:39 11/25/18 03:51 11/25/18 04:00 Temperature 97.4 F L Pulse Rate 77 47 L 54 L Respiratory Rate 16 Blood Pressure 182/72 H Pulse Oximetry 93 L 11/25/18 07:53 11/25/18 08:00 Temperature 97.4 F L Pulse Rate 52 L 46 L Respiratory Rate 16 18 Blood Pressure 160/67 H Pulse Oximetry 97 97 Intake & Output 11/24/18 11/25/18 11/25/18 18:59 06:59 18:59 Intake Total 600 / 600 240 / 240 Output Total 1000 / 1000 1200 / 1200 Balance -400 / -400 -960 / -960 Weight 104.3 kg Intake: Oral 600 / 600 240 / 240 Output: Urine 1000 / 1000 1200 / 1200 Other: Date of Last Bowel Movement 11/24/18 11/24/18 # Bowel Movements 1 - Constitutional no acute distress - Routine HEENT Exam Head: Present: normocephalic Eye: Present: PERRL ENT: Present: mucous membranes moist - Routine Neck Exam Present: full ROM - Routine Respiratory Exam Present: CTA bilaterally - Routine Cardiovascular Exam Present: S1, S2. Absent: murmur, gallop, rubs - Routine Abdominal Exam Present: normoactive bowel sounds - Routine Extremities Exam Present: edema, full ROM, pulses intact, normal capillary refill. Absent: cyanosis, clubbing Comments: trace edema bilateral lower extremities. - Routine Skin Exam Present: intact - Routine Neurological Exam Present: oriented X3 - Detailed Neurological Exam: Coma Scale Eye Opening: Spontaneous Verbal Response: Oriented Motor Response: Obey commands [place] Coma Scale Total: 15 - Routine Psychiatric Exam Present: normal affect Results 11/20/18 03:50 11/20/18 03:50 Coagulation 11/24/18 11/25/18 Range/Units 07:38 07:00 PT 21.3 H 23.7 H (9.8-11.6) sec Intake and Output 11/24/18 11/25/18 11/25/18 22:59 06:59 14:59 Intake Total 600 / 600 240 / 240 Output Total 1000 / 1000 1200 / 1200 Balance -400 / -400 -960 / -960 Intake: Oral 600 / 600 240 / 240 Output: Urine 1000 / 1000 1200 / 1200 Other: Date of Last Bowel Movement 11/24/18 11/24/18 # Bowel Movements 1 Weight 104.3 kg Assessment and Plan - Assessment (1) COPD exacerbation Code(s): J44.1 - Chronic obstructive pulmonary disease with (acute) exacerbation Status: Acute (2) Elevated troponin Code(s): R74.8 - Abnormal levels of other serum enzymes Status: Acute (3) History of DVT (deep vein thrombosis) Code(s): Z86.718 - Personal history of other venous thrombosis and embolism Status: Acute (4) Hypertension Code(s): I10 - Essential (primary) hypertension Status: Acute (5) Diabetes Code(s): E11.9 - Type 2 diabetes mellitus without complications Status: Acute - Plan Patient is having mild SOB this morning, pulmonary evaluation and treatment in progress for COPD exacerbation. She continues to remain stable from a cardiac standpoint. She has mild edema in her lower extremities, continue diuresis and monitor kidney function. We will continue to monitor the patient during her hospitalization. 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 Mccloud, after discharge from the hospital. The patient was seen and evaluated by Dr. Dexter who participated in care, management and decision making. - Attending Attestation Patient seen and examined. I reviewed and agree with the evaluation and plan as presented. Continue tx for COPD exacerbation. Increase diuresis. Increase activity, PT.
== END 2018-11-25 10:30 | disposition home health service (06) | DRG 190 ==
LOC: NEPE 15:57 → NEDA 19:03 → N04 21:30
PROVIDERS: ADMIT Family Medicine; ATTEND Family Medicine
DX: F41.9 Anxiety disorder, unspecified; I42.9 Cardiomyopathy, unspecified; J18.9 Pneumonia, unspecified organism; R74.8 Abnormal levels of other serum enzymes; Z86.711 Personal history of pulmonary embolism; D50.9 Iron deficiency anemia, unspecified; I10 Essential (primary) hypertension; I27.20 Pulmonary hypertension, unspecified; G47.33 Obstructive sleep apnea (adult) (pediatric); J44.0 Chronic obstructive pulmonary disease with (acute) lower respiratory infection; E11.9 Type 2 diabetes mellitus without complications; Z86.718 Personal history of other venous thrombosis and embolism; Z79.82 Long term (current) use of aspirin; J96.21 Acute and chronic respiratory failure with hypoxia; D68.9 Coagulation defect, unspecified; G25.0 Essential tremor; E66.9 Obesity, unspecified; K21.9 Gastro-esophageal reflux disease without esophagitis; J44.1 Chronic obstructive pulmonary disease with (acute) exacerbation; Z99.81 Dependence on supplemental oxygen; Z68.36 Body mass index [BMI] 36.0-36.9, adult; F32.9 Major depressive disorder, single episode, unspecified; Z87.891 Personal history of nicotine dependence; Z79.01 Long term (current) use of anticoagulants
CPT/HCPCS: 36600; 71010; 71045; 80048; 80053; 82550; 82805; 82948; 82962; 83605; 84484; 85025; 85610; 85730; 87040; 87070; 87205; 87275; 87276; 87804; 90761; 90765; 90775; 93005; 93306; 94060; 94640; 94664; 94665; 96361; 96365; 96375; 97110; 97116; 97162; 99285; J0456; J0696; J1815; J2920; J7030; J7040; J7050; J7506; J7512